=== PATIENT | female | born 1960 | race Caucasian/White ===

== ENCOUNTER 2020-06-22 20:24 | Emergency (ER) | payer MEDICARE, SELFPAY ==
[2020-06-22] VITALS (7 sets, daily range): BP systolic 160–198; BP diastolic 76–104; PULSE 88–101; RESP 15–22; TEMP 37.2; O2SAT 94–99
--- NOTE | ~2020-06-22 | CT_ITS ---
EXAMINATION: CTA chest PE protocol EXAM DATE: 06/22/2020 21:59 INDICATION: chest tightness, shortness of breath, elevated d-dimer. TECHNIQUE: Spiral CTA of the chest (pulmonary arteries) was performed with 100 cc Omnipaque 350 intr avenous contrast injection. Images were acquired during the pulmonary arterial phase. Coronal maxi mum intensity projection 3D-reconstructions were created by the technologist on dedicated workstation . Axial, coronal and sagittal reformatted images were reviewed. The dose-length product (DLP) for t his examination was 932.79 mGy-cm. The exposure was tailored according to patient size (auto mA exp osure control), and iterative reconstruction (ASIR) was used as additional dose reduction technique. Comparison is made to prior examination from 02/21/2015. FINDINGS: Pulmonary arteries are well opacified and without intraluminal filling defects. No thora cic aortic dissection. There is right lower lobe segmental partially confluent consolidation, appear ance most consistent with bacterial pneumonia. No left-sided airspace disease. There are no pleural or pericardial effusions. Tracheobronchial tree is patent. There is no mediastinal, hilar or axil brie lymphadenopathy. There is no pneumothorax. Heart normal in size. There is mild coronary ar terial calcification, arterial sclerosis. Hepatic steatosis. There is thoracic spondylosis without osteoblastic or osteolytic lesions identified. IMPRESSION: 1. Segmental right lower lobe pneumonia. 2. No pulmonary emboli. Reviewed, dictated and finalized at location A.
--- NOTE | ~2020-06-22 | CT_ITS ---
EXAMINATION: CT brain wo con EXAM DATE: 06/22/2020 21:59 INDICATION: Generalized weakness. TECHNIQUE: Spiral CT of the head was performed without contrast. Axial, coronal and sagittal images were reviewed. The dose-length product (DLP) for this examination was 605.33 mGy-cm. The exposure w as tailored according to patient size, and iterative reconstruction (ASIR) was used as additional dos e reduction technique. Comparison is made to prior examination from 07/27/2008. FINDINGS: There is no acute intraparenchymal hemorrhage. No evidence of intraparenchymal brain mass lesion. No evidence of acute infarction. There is no mass effect or midline shift. The ventricles are normal in size. There are no extra-axial collections. There are no acute calvarial fractures. T he orbits are unremarkable. Soft tissue is unremarkable. The visualized sinuses and mastoid air justine ls are well aerated. IMPRESSION: 1. No acute intracranial findings. Reviewed, dictated and finalized at location A.
--- NOTE | ~2020-06-22 | XR_ITS ---
EXAMINATION: XR chest 2V EXAM DATE: 06/22/2020 22:09 INDICATION: Dyspnea, shortness of breath, COPD. TECHNIQUE: Frontal and lateral projections of the chest obtained and reviewed. Comparison is made to prior examination from 09/12/2017. FINDINGS: There is increased density over the right lower lung zone, the segmental mostly groundglass region of acute infectious process better seen on CT. There are no pleural effusions. The cardiome diastinal silhouette is within normal limits. There is no pneumothorax suspected. The bones and sof t tissues are unremarkable. IMPRESSION: Right lower lobe segmental pneumonia. Reviewed, dictated and finalized at location A.
--- NOTE | 2020-06-22 20:29 | ED.URI ---
HPI - URI/Sore Throat General Chief Complaint: Upper Respiratory Infection Stated Complaint: CHEST TIGHTNESS Time Seen by Provider: 06/22/20 20:28 Source: patient Mode of arrival: ambulatory Limitations: no limitations History of Present Illness HPI Narrative: The patient is a 59 yo female who has history of COPD/emphysema, who presents to the ER for evaluation of various complaints including weakness, chest tightness, flank pain. Pt reporting she has been feeling unwell all week, with myalgias, diffuse weakness. Pt denies fever, cough. She does report some shortness of breath and pain with inspiration. She denies fred chest pain. She denies leg swelling or calf pain. Pt denies rhinorea, sore throat, loss of sense or taste or smell. No recent sick contacts. No one sick at home. No known COVID exposures. Pt did try a Neb treatment at home which she thought improved her symptoms. 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 Related Data Allergies Allergy/AdvReac Type Severity Reaction Status Date / Time codeine Allergy Severe Verified 07/18/15 14:44 hydrocodone Allergy Unknown Verified 02/26/16 21:15 NKFA Allergy Unknown Uncoded 02/28/03 14:58 Review of Systems Review of Systems: Narrative: CONSTITUTIONAL: Denies fever, chills, or sweats. EYES: Denies visual changes, redness, or discharge. ENT: Denies rhinorrhea, congestion, sore throat, or otalgia. CARDIOVASCULAR: Reports chest tightness, denies palpitations or edema RESPIRATORY: Denies productive cough, reports feeling mildly short of breath GASTROINTESTINAL: Denies abdominal pain, nausea, vomiting, or diarrhea. GENITOURINARY: Denies dysuria or hematuria. SKIN: Denies rash or itching. MUSCULOSKELETAL: Reports bilateral flank pain and myalgias NEUROLOGIC: Denies headache, numbness, reports diffuse weakness PMFSH Past Medical History Medical History (Updated 06/22/20 @ 22:39 by Uzma Will MD) COPD (chronic obstructive pulmonary disease) Emphysema/COPD Hyperlipidemia Hypertension Type 2 diabetes mellitus Family History Family History (Updated 11/15/10 @ 11:47 by DOCTOR UNKNOWN) Other Cerebrovascular accident Diabetes mellitus Family history of coronary artery disease Hypertension Social History Social History Smoking status: Former smoker Second hand tobacco smoke exposure: No Alcohol intake: never Exam Narrative: Exam Narrative: GENERAL: Awake, alert, conversant HEAD: Normocephalic, atraumatic. EYES: PERRLA and EOMI. ENT: Nares clear, no rhinorrhea or epistaxis. Mucous membranes moist. NECK: Supple. CHEST: No respiratory distress, breathing even and non labored, no wheezing, no reproducible chest wall tenderness HEART: Mildly tachycardic rate, sinus rhythm ABDOMEN:Non distended, non tender EXTREMITIES: Normal range of motion. No edema. SKIN: Warm, dry, no rash. NEURO:No focal deficits. Alert and oriented x3 Course Vital Signs Vital signs: Vital Signs Temperature 37.2 C 06/22/20 20: Pulse Rate 101 H 06/22/20 20: Respiratory Rate 16 06/22/20 20:27 Blood Pressure 198/104 H 06/22/20 20:27 Pulse Oximetry 96 06/22/20 20:27 Temperature 37.2 C 06/22/20 20:27 Pulse Rate 89 06/22/20 21:31 Respiratory Rate 22 H 06/22/20 21:31 Blood Pressure 160/80 H 06/22/20 21:31 Pulse Oximetry 95 06/22/20 21:31 MDM - URI/Sore Throat MDM Narrative Medical decision making narrative: Patient presented for evaluation of general malaise, chest tightness. At the time of assessment, ABCs are intact, vital signs are stable. Lungs are clear, no respiratory distress. Patient has symptoms concerning for possible infectious etiology such as COVID, thus placement based on precautions, tested for COVID. Work-up is consistent with pneumonia. No leukocytosis. Patient is not septic. She has a mild transaminitis which can be seen in setting of illness. She has elevated glucose,
--- NOTE | 2020-06-22 20:55 | ECG_ITS ---
Measurements Intervals [place] Rate: 98 P: 36 SD: 184 QRS: 57 QRSD: 97 T: 23 QT: 363 QTc: 465 Interpretive Statements SINUS RHYTHM BORDERLINE ST-T WAVE ABNORMALITY- DIFFUSE LEADS BASELINE WANDER- I, II, AVR, AVL, AVF, V1-V3 BORDERLINE ECG Electronically Signed On 06-23-2020 7:30:25 CDT by Jose Aguirre D.O.
[2020-06-22] MEDS: SODIUM CHLORIDE 0.9% IV 1,000 ML 999 ML IV CONT (20:58)
[2020-06-22 20:59] LABS: Basophils Percent Auto 0.3 % (0.2-1.2); Eosinophils Percent Auto 0.2 % (0-4.4); Hematocrit 47.2 % (37.0-47.0); Hemoglobin 16.4 g/dL (12.0-15.0); Immature Granulocyte Absolute 0.04 K/mm3 (0.00-0.031); Immature Granulocyte Percent A 0.7 % (0-0.5); Lymphocytes Absolute Auto 2.36 K/mm3 (0.9-3.2); Lymphocytes Percent Auto 39.5 % (18.3-44.2); Mean Corpuscular HGB Conc 34.7 g/dl (32-36); Mean Corpuscular Hemoglobin 29.9 pg (26-34); Monocytes Absolute Auto 0.8 K/mm3 (0.1-0.6); Monocytes Percent Auto 12.7 % (2.6-8.5); Neutrophils Absolute Auto 2.8 K/mm3 (1.3-6.7); Neutrophils Percent Auto 46.6 % (45.5-73.1); Platelet Count Result 118 k/mm3 (150-375); Red Blood Count 5.49 M/mm3 (4.2-5.4); Red Cell Distribution Width 13.6 % (11.5-14.5)
[2020-06-22] MEDS: ALBUTEROL SULFATE (*SP) AEROSOL 1 PUFF 2 PUFF INHALATION (20:59)
[2020-06-22] MEDS: methylPREDNISolone SOD SUCC 125 MG VIAL IV PUSH (21:00)
--- NOTE | 2020-06-22 21:01 | PCRCNOTE ---
pt refused abg dr hagen aware
[2020-06-22] MEDS: ONDANSETRON INJ 4 MG/2 ML VIAL IV PUSH (21:04)
[2020-06-22 21:09] LABS: INR 1.1; Prothrombin Time 13.5 Seconds (11.1-14.7)
[2020-06-22 21:10] LABS: Partial Thromboplastin Time 27.2 SECONDS (22.3-36.8)
[2020-06-22 21:12] LABS: D Dimer 3.17 ug/mL (<0.48)
[2020-06-22 21:32] LABS: Lipase 70 U/L (23-300)
[2020-06-22 21:36] LABS: Alanine Aminotransferase 97 U/L (4-35); Albumin Level 4.1 g/dL (3.5-5.1); Alkaline Phosphatase 69 U/L (38-126); Anion Gap 11 mmol/L (8-16); Aspartate Amino Transferase 65 U/L (14-36); Bilirubin,Total 0.7 mg/dL (0.2-1.3); Blood Urea Nitrogen 9 mg/dL (7-17); CRP 1.1 mg/dL (<1.0); Calcium 8.8 mg/dL (8.4-10.2); Carbon Dioxide 24 mmol/L (22-30); Chloride 98 mmol/L (98-107); Estimated Glomerular Filt Rate > 60; Glucose 309 mg/dL (65-105); Potassium 3.7 mmol/L (3.4-5.0); Sodium 133 mmol/L (137-145)
[2020-06-22 21:42] LABS: NT Pro B Type Natriuretic Pept 23 PG/ML (5-100)
[2020-06-22 21:44] LABS: Troponin I < 0.012 ng/mL (0.000-0.034)
--- NOTE | 2020-06-22 21:51 | PC.NURSE ---
Pt. to ct.
--- NOTE | 2020-06-22 22:02 | PC.NURSE ---
Pt in CT. Unable to obtain a urine sample.
[2020-06-22 22:40] LABS: Add Urine Microscopic? YES; Appearance Urine Clear (Clear); Bacteria Urine Trace /hpf; Bilirubin Urine Negative (Negative); Blood Urine Negative (Negative); Color Urine Straw (Yellow); Glucose Urine UA 3+ mg/dL (Negative); Ketones Urine 1+ mg/dL (Negative); Leukocyte Esterase Ur Negative LEU/UL (Negative); Mucus Urine Rare /lpf; Nitrate Urine Negative (Negative); Protein Urine Negative (Negative); Squamous Epithelial Cell Urine Few /hpf (Few); Urobilinogen Urine Negative mg/dL (<2.0); WBC Urine 0-3 /hpf
[2020-06-22 22:43] LABS: Specific Grav Ur > 1.060 (1.001-1.035)
[2020-06-22] MEDS: DOXYCYCLINE HYCLATE 100 MG TABLET PO (22:59)
[2020-06-23 13:17] LABS: SARS-CoV-2 RNA PCR Positive
== END 2020-06-22 22:55 | disposition home or self-care (01) ==
PROVIDERS: Emergency Provider Emergency Medicine
DX: U07.1 COVID-19 (principal); J12.89 Other viral pneumonia; J43.9 Emphysema, unspecified; Z87.891 Personal history of nicotine dependence; E78.5 Hyperlipidemia, unspecified; I10 Essential (primary) hypertension; E11.9 Type 2 diabetes mellitus without complications; R94.31 Abnormal electrocardiogram [ECG] [EKG]; R06.02 Shortness of breath
CPT/HCPCS: 36415; 70450; 71046; 71275; 80053; 81001; 83690; 83880; 84484; 85025; 85380; 85610; 85730; 86140; 87635; 93005; 96361; 96374; 96375; 99284; A9270; C9803; J0131; J2405; J2930; J7030; Q9967; U0003

== ENCOUNTER 2021-01-18 08:16 | Outpatient (CLI) | payer MEDICARE, SELFPAY ==
[2021-01-18 08:38] LABS: Basophils Absolute Auto 0.1 K/mm3 (0.0-0.1); Basophils Percent Auto 0.6 % (0.2-1.2); Eosinophils Absolute Auto 0.3 K/mm3 (0-0.3); Eosinophils Percent Auto 3.5 % (0-4.4); Hemoglobin 16.5 g/dL (12.0-15.0); Immature Granulocyte Absolute 0.05 K/mm3 (0.00-0.031); Immature Granulocyte Percent A 0.6 % (0-0.5); Lymphocytes Absolute Auto 3.47 K/mm3 (0.9-3.2); Lymphocytes Percent Auto 45.1 % (18.3-44.2); Mean Corpuscular HGB Conc 34.4 g/dl (32-36); Mean Corpuscular Hemoglobin 29.9 pg (26-34); Mean Corpuscular Volume 87.1 fl (80-100); Mean Platelet Volume 12.3 fl (7.4-10.4); Monocytes Absolute Auto 0.7 K/mm3 (0.1-0.6); Monocytes Percent Auto 8.7 % (2.6-8.5); Neutrophils Absolute Auto 3.2 K/mm3 (1.3-6.7); Neutrophils Percent Auto 41.5 % (45.5-73.1); Platelet Count Result 140 k/mm3 (150-375); Red Blood Count 5.51 M/mm3 (4.2-5.4); Red Cell Distribution Width 13.3 % (11.5-14.5); White Blood Count 7.7 K/mm3 (4.5-10.0)
[2021-01-18 08:53] LABS: Hemoglobin A1C 11.3 % (<5.7)
[2021-01-18 08:59] LABS: Alanine Aminotransferase 51 U/L (4-35); Albumin Level 4.3 g/dL (3.5-5.1); Alkaline Phosphatase 68 U/L (38-126); Anion Gap 10 mmol/L (8-16); Aspartate Amino Transferase 36 U/L (14-36); Bilirubin,Total 0.6 mg/dL (0.2-1.3); Blood Urea Nitrogen 12 mg/dL (7-17); Calcium 9.2 mg/dL (8.4-10.2); Carbon Dioxide 23 mmol/L (22-30); Chloride 102 mmol/L (98-107); Cholesterol 262 mg/dL (0-200); Estimated Glomerular Filt Rate > 60; Glucose 336 mg/dL (65-105); Magnesium 1.6 mg/dL (1.6-2.3); Potassium 4.3 mmol/L (3.4-5.0); Sodium 135 mmol/L (137-145)
[2021-01-18 09:04] LABS: LDL Cholesterol Direct 56 mg/dL
[2021-01-18 09:17] LABS: Triglycerides 1428 mg/dL (<150)
[2021-01-18 09:35] LABS: Vitamin D 25 Hydroxy 16.9 ng/mL
== END 2021-01-18 08:17 | disposition home or self-care (01) ==
PROVIDERS: PCP Family Medicine; Visit Provider Nurse Practitioner Family
DX: J44.9 Chronic obstructive pulmonary disease, unspecified (principal); E78.5 Hyperlipidemia, unspecified; E11.65 Type 2 diabetes mellitus with hyperglycemia; Z13.29 Encounter for screening for other suspected endocrine disorder; E55.9 Vitamin D deficiency, unspecified
CPT/HCPCS: 36415; 80053; 80061; 82306; 82607; 83036; 83735; 84443; 85025

== ENCOUNTER 2021-05-03 15:18 | Outpatient (CLI) | payer MEDICARE, SELFPAY ==
--- NOTE | ~2021-05-03 | CT_ITS ---
EXAMINATION: CT abdomen wo con DATE: 05/03/2021 15:58 INDICATION: Unspecified abdominal pain. TECHNIQUE: Computed tomography (CT) of the abdomen was performed without intravenous contrast. Automa jeevan exposure control and iterative reconstruction technique were employed. The dose-length product wa s 929.68 mGy-cm. COMPARISON: CT abdomen and pelvis 06/30/2011 FINDINGS: The visualized portions of the lung bases demonstrate mild atelectasis. No pleural effusion . The heart size is normal. No pericardial effusion. There is diffuse hepatic steatosis. There are ch anges of cholecystectomy. The spleen, pancreas, adrenal glands, and kidneys are normal. There are no dilated loops of bowel. There are no pathologically enlarged lymph nodes. There is no free intraperit francis fluid. There is moderate lumbar spondylosis. IMPRESSION: 1. Diffuse hepatic steatosis. Reviewed, dictated and finalized at location A.
== END 2021-05-03 15:19 | disposition home or self-care (01) ==
PROVIDERS: PCP Family Medicine; Visit Provider Nurse Practitioner Family
DX: R10.9 Unspecified abdominal pain (principal); K76.0 Fatty (change of) liver, not elsewhere classified
CPT/HCPCS: 74150

== ENCOUNTER 2021-05-04 08:02 | Outpatient (CLI) | payer MEDICARE, SELFPAY ==
[2021-05-04 08:41] LABS: Basophils Absolute Auto 0.1 K/mm3 (0.0-0.1); Basophils Percent Auto 0.8 % (0.2-1.2); Eosinophils Absolute Auto 0.3 K/mm3 (0-0.3); Eosinophils Percent Auto 3.8 % (0-4.4); Hematocrit 47.7 % (37.0-47.0); Hemoglobin 16.3 g/dL (12.0-15.0); Immature Granulocyte Absolute 0.06 K/mm3 (0.00-0.031); Immature Granulocyte Percent A 0.7 % (0-0.5); Lymphocytes Absolute Auto 3.61 K/mm3 (0.9-3.2); Lymphocytes Percent Auto 43.1 % (18.3-44.2); Mean Corpuscular HGB Conc 34.2 g/dl (32-36); Mean Corpuscular Hemoglobin 29.4 pg (26-34); Mean Corpuscular Volume 85.9 fl (80-100); Monocytes Absolute Auto 0.7 K/mm3 (0.1-0.6); Monocytes Percent Auto 8.8 % (2.6-8.5); Neutrophils Absolute Auto 3.6 K/mm3 (1.3-6.7); Neutrophils Percent Auto 42.8 % (45.5-73.1); Platelet Count Result 165 k/mm3 (150-375); Red Blood Count 5.55 M/mm3 (4.2-5.4); Red Cell Distribution Width 14.2 % (11.5-14.5); White Blood Count 8.4 K/mm3 (4.5-10.0)
[2021-05-04 08:52] LABS: Alanine Aminotransferase 56 U/L (4-35); Albumin Level 4.2 g/dL (3.5-5.1); Alkaline Phosphatase 64 U/L (38-126); Amylase 68 U/L (30-110); Anion Gap 13 mmol/L (8-16); Aspartate Amino Transferase 36 U/L (14-36); Bilirubin,Total 0.7 mg/dL (0.2-1.3); Blood Urea Nitrogen 14 mg/dL (7-17); Calcium 9.3 mg/dL (8.4-10.2); Carbon Dioxide 20 mmol/L (22-30); Chloride 98 mmol/L (98-107); Estimated Glomerular Filt Rate > 60; Glucose 374 mg/dL (65-110); Lipase 105 U/L (23-300); Potassium 4.2 mmol/L (3.4-5.0); Sodium 131 mmol/L (137-145)
== END 2021-05-04 08:03 | disposition home or self-care (01) ==
PROVIDERS: PCP Family Medicine; Visit Provider Nurse Practitioner Family
DX: R10.812 Left upper quadrant abdominal tenderness (principal); R10.9 Unspecified abdominal pain
CPT/HCPCS: 36415; 80053; 82150; 83690; 85025

== ENCOUNTER 2021-09-08 12:03 | Emergency (ER) | payer MEDICARE, SELFPAY ==
--- NOTE | ~2021-09-08 | CT_ITS ---
EXAMINATION: Moderate cervical spondylosis. EXAM DATE: 09/08/2021 13:16 INDICATION: Fall, head, facial injury. TECHNIQUE: Spiral CT of the facial bones was acquired in the axial plane. Coronal reformatted images were also reviewed. Spiral CT of the cervical spine was performed without contrast. Axial images we re reviewed. Coronal and sagittal reformatted images were also reviewed. The dose-length product (DL P) for this examination was 555.73 mGy-cm. The exposure was tailored according to patient size, and iterative reconstruction (ASIR) was used as additional dose reduction technique. There is no prior s tudy for comparison. FINDINGS: FACIAL CT: Bilateral nasal bone fractures which are mildly depressed. Probable acute nasal septal fr acture. There is blood within the ethmoid, sphenoid sinuses. The orbits, globes and extraocular musc les are unremarkable. Some blood products within the ethmoid and sphenoid sinuses. CERVICAL CT: There is no evidence of acute cervical fracture. The odontoid process is intact. Pre-d ens space is normal. Prevertebral soft tissue is normal. There are no soft tissue abnormalities marly ntified. There is no disc space widening or traumatic vertebral body subluxation suspected. Vertebr al body and disc heights are well-maintained. A detailed level by level evaluation of spondylosis c an be added as addendum if requested. IMPRESSION: 1. Mildly depressed nasal bone fractures. 2. Nondisplaced nasal septal fracture. 3. Some sinus blood. 4. No cervical fracture. Reviewed, dictated and finalized at location A. TEGY INTERN
--- NOTE | ~2021-09-08 | CT_ITS ---
EXAMINATION: CT brain wo [facility] EXAM DATE: 09/08/2021 13:16 INDICATION: Fall. TECHNIQUE: Spiral CT of the head was performed without contrast. Axial, coronal and sagittal images were reviewed. The dose-length product (DLP) for this examination was 681.00 mGy-cm. The exposure w as tailored according to patient size, and iterative reconstruction (ASIR) was used as additional dos e reduction technique. Comparison is made to prior examination from 06/22/2020. FINDINGS: There is no acute intraparenchymal hemorrhage. No evidence of intraparenchymal brain mass lesion. No evidence of acute infarction. There is no mass effect or midline shift. The ventricles are normal in size. There are no extra-axial collections. There are no acute calvarial fractures. T he orbits are unremarkable. Soft tissue is unremarkable. Nasal bone fractures. Ethmoid, nasal cavi ty blood IMPRESSION: 1. No acute intracranial findings. 2. Nasal bone fractures. Reviewed, dictated and finalized at location A. DRAFTER
--- NOTE | ~2021-09-08 | XR_ITS ---
EXAMINATION: XR shoulder RT min 2V EXAM DATE: 09/08/2021 12:08 INDICATION: fall, deformity . TECHNIQUE: Frontal, Y projections of the right shoulder. There is no prior study for comparison. FINDINGS: Acute closed posttraumatic nondisplaced fractures of the right humeral neck and probably g reater tuberosity. No dislocation. IMPRESSION: Right humeral neck/greater tuberosity nondisplaced fractures. Reviewed, dictated and finalized at location A. OTICS TECHNICIAN
[2021-09-08 11:53] VITALS: BP 180/104; PULSE 78; RESP 16; TEMP 36.6; O2SAT 95
--- NOTE | 2021-09-08 12:18 | ED.GENADULT ---
HPI - General Adult General Chief complaint: Fall Stated complaint: fall - deformed arm Time Seen by Provider: 09/08/21 12:09 Source: patient History of Present Illness HPI narrative: Patient is a 61 y/o female complaining of right shoulder pain follow a fall earlier today. She states that she tripped while walking into the house from garage. She states that she fell forward and hit her face. She describes her shoulder pain as dull and rates it as 9/10. Pain is worse with movement. She also struck her face and has nose laceration. She has no headache, neck pain, back pain chest pain for abdominal pain. Related Data Allergies Allergy/AdvReac Type Severity Reaction Status Date / Time hydrocodone Allergy Unknown Nausea and Verified 07/05/21 13:44 Vomiting codeine AdvReac Severe Nausea and Verified 07/05/21 13:44 Vomiting Review of Systems Constitutional: Constitutional: Denies chills, Denies fever(s), Denies headache(s) and Denies weakness Eyes: Eyes: Denies blurry vision ENT: Denies headache(s) and Denies neck pain Cardiovascular: Cardiovascular: Denies chest pain and Denies dyspnea Respiratory: Respiratory: Denies cough and Denies dyspnea Gastrointestinal: Gastrointestinal: Denies abdominal pain, Denies diarrhea, Denies nausea and Denies vomiting Genitourinary: Genitourinary: Denies hematuria and Denies dysuria Musculoskeletal: Musculoskeletal: Denies back pain, Denies neck pain and Reports other (right shoulder pain) Neurologic: Denies headache(s) and Denies weakness PMFSH Past Medical History Medical History Acute bronchitis due to other specified organisms Acute sinusitis, unspecified BMI 36.0-36.9,adult BMI 37.0-37.9, adult COPD (chronic obstructive pulmonary disease) COVID-19 Depression Dietary counseling and surveillance (09/30/16) Elevated liver function tests Emphysema/COPD Essential (primary) hypertension Fatty liver Fatty liver Flu vaccine need Hyperlipidemia Hypertension [place] (obstructive sleep apnea) Other abnormal glucose Other hyperlipidemia Sebaceous cyst Shortness of breath Type 2 diabetes mellitus Type 2 diabetes mellitus without complication Uncontrolled type 2 diabetes mellitus with complication, without long-term current use of insulin Vaginal candidiasis Family History Family History Father Heart disease Mother Heart disease Sibling Heart disease Acute myocardial infarction Sibling Heart disease Hypertension Diabetes mellitus Vitamin D deficiency Cancer Other Cerebrovascular accident Family history of coronary artery disease Social History Social History Tobacco type: cigarettes Second hand tobacco smoke exposure: Yes Alcohol intake: current Substance use: never Substance use type: does not use Additional occupation/education comments: disabled Gender identity (if verbalized by the patient): Female Sexual Orientation (if Verbalized by the Patient): Straight or Heterosexual Exam Const: General: no acute distress and well developed Orientation/consciousness: oriented to person, oriented to place, oriented to time and patient oriented x3 HENMT: Head: normocephalic Ears: external ears normal General nose exam: Normal external nose present Eyes: General: appearance normal, both eyes and all related structures Conjunctivae: conjunctivae normal Neck: Neck: normal visual inspection and full ROM Chest: Chest palpation & inspection: normal inspection of the chest and no tenderness Resp: Effort & Inspection: normal respiratory effort Auscultation: clear to auscultation bilaterally Cardio: Rate: regular rate Rhythm: regular rhythm GI: GI Palp: No abdominal tenderness and Yes Soft to palpation Skin: General skin exam: normal color an
[2021-09-08] MEDS: traMADol HCL (*CRX) 50 MG TABLET PO (12:34)
[2021-09-08] MEDS: TETANUS,DIPHTHERIA,AC PERTUSSIS ADULT (0.5 ML) BOOSTRIX IM (12:34)
[2021-09-08 14:40] VITALS: BP 170/80; PULSE 89; RESP 14; O2SAT 97
== END 2021-09-08 14:40 | disposition home or self-care (01) ==
PROVIDERS: Emergency Provider Emergency Medicine; PCP Family Medicine
DX: S42.254A Nondisplaced fracture of greater tuberosity of right humerus, initial encounter for closed fracture (principal); S42.214A Unspecified nondisplaced fracture of surgical neck of right humerus, initial encounter for closed fracture; S02.2XXA Fracture of nasal bones, initial encounter for closed fracture; S01.21XA Laceration without foreign body of nose, initial encounter; Z23 Encounter for immunization; J43.9 Emphysema, unspecified; I10 Essential (primary) hypertension; E78.5 Hyperlipidemia, unspecified; G47.33 Obstructive sleep apnea (adult) (pediatric); E11.9 Type 2 diabetes mellitus without complications; Z86.16 Personal history of COVID-19; F32.A Depression, unspecified; F17.210 Nicotine dependence, cigarettes, uncomplicated; Z79.84 Long term (current) use of oral hypoglycemic drugs; Z79.899 Other long term (current) drug therapy; W01.0XXA Fall on same level from slipping, tripping and stumbling without subsequent striking against object, initial encounter
CPT/HCPCS: 12011; 70450; 70486; 72125; 73030; 90471; 90715; 99284; A9270

== ENCOUNTER 2021-09-11 14:45 | Outpatient (CLI) | payer MEDICARE, SELFPAY ==
--- NOTE | ~2021-09-11 | CT_ITS ---
EXAMINATION: CT shoulder RT wo con DATE: 09/11/2021 15:26 INDICATION: Closed fracture of proximal right humerus. TECHNIQUE: Computed tomography (CT) of the right shoulder was performed without intravenous contrast. Automated exposure control and iterative reconstruction technique were employed. The dose-length pro duct was 531.94 mGy-cm. COMPARISON: Right humerus radiographs 09/08/2021 FINDINGS: Bone alignment is normal. There is a comminuted fracture proximal right humerus including f racture components of the greater tuberosity without to 7 mm displacement. There is a fracture compon ent at the surgical neck. The main distal fracture fragment demonstrates 3 mm medial displacement, 8 mm impaction laterally, and 9 degrees lateral angulation. There is mild osteoarthritis of acromioclav icular joint and glenohumeral joint. IMPRESSION: 1. Comminuted one-part fracture of proximal right humerus. Reviewed, dictated and finalized at location A. NG MIXER
== END 2021-09-11 14:46 | disposition home or self-care (01) ==
PROVIDERS: PCP Family Medicine; Visit Provider Orthopaedic Surgery
DX: S42.201D Unspecified fracture of upper end of right humerus, subsequent encounter for fracture with routine healing (principal); X58.XXXD Exposure to other specified factors, subsequent encounter
CPT/HCPCS: 73200

== ENCOUNTER 2022-03-19 09:05 | Outpatient (CLI) | payer MEDICARE, SELFPAY ==
--- NOTE | ~2022-03-19 | MR_ITS ---
EXAMINATION: MR brain/brain stem wo con DATE: 03/19/2022 10:28 INDICATION: Headache. TECHNIQUE: Magnetic resonance imaging (MRI) of the brain and brainstem was performed without intraven ous contrast. COMPARISON: Brain MRI 11/07/2009, head CT 09/08/2021 FINDINGS: There is a small focus of increased T2-weighted signal intensity in the right frontal lobe deep white matter, which is normal as an isolated finding. There is no intracranial hemorrhage, acute infarction, or abnormal intracranial mass lesion. The ventricles are normal in size. The paranasal s inuses are clear. The orbits are normal. The mastoid air cells are normal. IMPRESSION: 1. Normal brain. Reviewed, dictated and finalized at location A. IMPRESSION: 1. Normal brain.
== END 2022-03-19 09:06 | disposition home or self-care (01) ==
PROVIDERS: PCP Family Medicine; Visit Provider Nurse Practitioner Family
DX: R51.9 Headache, unspecified (principal); Z86.73 Personal history of transient ischemic attack (TIA), and cerebral infarction without residual deficits; R26.89 Other abnormalities of gait and mobility; I10 Essential (primary) hypertension; H93.19 Tinnitus, unspecified ear
CPT/HCPCS: 70551

== ENCOUNTER 2022-05-22 13:31 | Outpatient (CLI) | payer MEDICARE, SELFPAY ==
[2022-05-22 13:56] LABS: Basophils Absolute Auto 0.1 K/mm3 (0.0-0.1); Eosinophils Absolute Auto 0.3 K/mm3 (0-0.3); Eosinophils Percent Auto 3.8 % (0-4.4); Hematocrit 48.1 % (37.0-47.0); Hemoglobin 16.6 g/dL (12.0-15.0); Immature Granulocyte Absolute 0.05 K/mm3 (0.00-0.031); Immature Granulocyte Percent A 0.6 % (0-0.5); Lymphocytes Absolute Auto 4.07 K/mm3 (0.9-3.2); Lymphocytes Percent Auto 48.5 % (18.3-44.2); Mean Corpuscular HGB Conc 34.5 g/dl (32-36); Mean Corpuscular Hemoglobin 30.2 pg (26-34); Mean Corpuscular Volume 87.6 fl (80-100); Mean Platelet Volume 11.8 fl (7.4-10.4); Monocytes Absolute Auto 0.6 K/mm3 (0.1-0.6); Monocytes Percent Auto 7.6 % (2.6-8.5); Neutrophils Absolute Auto 3.2 K/mm3 (1.3-6.7); Neutrophils Percent Auto 38.5 % (45.5-73.1); Platelet Count Result 154 k/mm3 (150-375); Red Blood Count 5.49 M/mm3 (4.2-5.4); Red Cell Distribution Width 13.5 % (11.5-14.5); White Blood Count 8.4 K/mm3 (4.5-10.0)
[2022-05-22 14:08] LABS: Alanine Aminotransferase 54 U/L (6-35); Albumin Level 4.6 g/dL (3.5-5.1); Alkaline Phosphatase 69 U/L (38-126); Anion Gap 18 mmol/L (8-16); Aspartate Amino Transferase 48 U/L (14-36); Bilirubin,Total 0.7 mg/dL (0.2-1.3); Blood Urea Nitrogen 11 mg/dL (7-17); Calcium 8.8 mg/dL (8.4-10.2); Carbon Dioxide 20 mmol/L (22-30); Chloride 96 mmol/L (98-107); Estimated Glomerular Filt Rate > 60; Glucose 378 mg/dL (65-110); Magnesium 1.7 mg/dL (1.6-2.3); Potassium 4.2 mmol/L (3.4-5.0); Sodium 134 mmol/L (137-145)
[2022-05-22 14:39] LABS: Vitamin D 25 Hydroxy 22.8 ng/mL
== END 2022-05-22 13:32 | disposition home or self-care (01) ==
PROVIDERS: PCP Family Medicine; Visit Provider Nurse Practitioner Family
DX: R19.7 Diarrhea, unspecified (principal); E55.9 Vitamin D deficiency, unspecified
CPT/HCPCS: 36415; 80053; 82306; 83735; 84443; 85025

== ENCOUNTER 2023-02-05 14:01 | Outpatient (CLI) | payer MEDICARE, SELFPAY ==
--- NOTE | ~2023-02-05 | MR_ITS ---
EXAMINATION: MR brain/brain stem wo con DATE: 02/05/2023 14:46 INDICATION: Unspecified visual disturbance. Headache. Memory loss. TECHNIQUE: Magnetic resonance imaging (MRI) of the brain and brainstem was performed without intraven ous contrast. COMPARISON: Brain MRI 03/19/2022, head CT 09/08/2021 FINDINGS: There are 2 punctate old microhemorrhage is in the cerebrum. There are scattered areas of n onspecific increased T2-weighted signal intensity in the cerebral white matter, which is within bakari l limits for the patient's age. The pituitary demonstrates a height of 11 mm with convex superior mar gin. There is a 7 mm mass in the left side of the pituitary with increased T2-weighted signal intensi ty. There is no acute ischemic infarct. The ventricles are normal in size. The paranasal sinuses are clear. The mastoid air cells are normal. IMPRESSION: 1. 7 mm pituitary mass, which may be a cyst or neoplasm. Brain MRI without and with contrast by the p ituitary protocol is recommended. Reviewed, dictated and finalized at location A. IMPRESSION: 1. 7 mm pituitary mass, which may be a cyst or neoplasm. Brain MRI without and with contrast by the pituitary protocol is recommended.
== END 2023-02-05 14:02 | disposition home or self-care (01) ==
LOC: ANHIMG 14:04
PROVIDERS: PCP Family Medicine; Visit Provider Nurse Practitioner Family
DX: H53.9 Unspecified visual disturbance (principal); R26.89 Other abnormalities of gait and mobility; R51.9 Headache, unspecified; Z86.73 Personal history of transient ischemic attack (TIA), and cerebral infarction without residual deficits
CPT/HCPCS: 70551

== ENCOUNTER 2023-02-07 20:57 | Inpatient (IN) | payer MEDICARE, SELFPAY ==
--- NOTE | ~2023-02-07 | CT_ITS ---
EXAMINATION: CT abdomen pelvis wo con DATE: 02/08/2023 00:32 INDICATION: Abdominal pain, nausea and vomiting TECHNIQUE: Computed tomography (CT) of the abdomen and pelvis was performed without intravenous contr ast. Automated exposure control and iterative reconstruction technique were employed. Exam dose: 150 2.29 mGy-cm total exam DLP. COMPARISON: 05/03/2021 CT abdomen FINDINGS: Chronic bilateral lower lobe focal fibrotic change, right greater than left. Cardiomegaly. No pericardial or pleural effusion. Status post cholecystectomy. There is diffuse hepatic steatosis. No hepatic space-occupying mass lesi on is detected. Status post cholecystectomy. No hepatic, splenic, pancreatic, and adrenal or renal sp donte-occupying mass lesion is detected. No bile duct or pancreatic duct dilatation. No urinary tract c alculus or hydroureteronephrosis. There is atherosclerotic calcification but normal caliber of the abdominal aorta and iliac arteries. There is atherosclerotic calcification at the origins of the renal arteries. No intraperitoneal or re troperitoneal or pelvic mass lesion or adenopathy or ascites is detected. Status post hysterectomy. No bowel obstruction or intraperitoneal free air. No suspicious osteolytic or osteoblastic lesions are noted. IMPRESSION: Hepatic steatosis Status post cholecystectomy. Status post hysterectomy Reviewed, dictated and finalized at Location A. Reviewed, dictated and finalized at location A.
--- NOTE | ~2023-02-07 | XR_ITS ---
EXAMINATION: XR abdomen/kub 1V INDICATION: Abdominal distention and nausea TECHNIQUE: Supine views of the abdomen were obtained on 2 radiographs. COMPARISON: CT, 02/08/2023 FINDINGS: The bowel gas pattern is nonspecific. No dilated loops of bowel are evident. There is moder ate to severe osteoarthritis of the hips. IMPRESSION: 1. No radiographic correlate for the patient's symptoms. Reviewed, dictated and finalized at location F.
[2023-02-07 21:19] VITALS: BP 150/99; PULSE 94; RESP 16; TEMP 36.6; O2SAT 98
[2023-02-07 21:33] LABS: Basophils Percent Auto 0.4 % (0.2-1.2); Eosinophils Absolute Auto 0.2 K/mm3 (0-0.3); Eosinophils Percent Auto 1.6 % (0-4.4); Hematocrit 50.1 % (37.0-47.0); Hemoglobin 17.1 g/dL (12.0-15.0); Immature Granulocyte Absolute 0.05 K/mm3 (0.00-0.031); Immature Granulocyte Percent A 0.5 % (0-0.5); Lymphocytes Absolute Auto 3.29 K/mm3 (0.9-3.2); Lymphocytes Percent Auto 30.8 % (18.3-44.2); Mean Corpuscular HGB Conc 34.1 g/dl (32-36); Mean Corpuscular Hemoglobin 29.6 pg (26-34); Mean Corpuscular Volume 86.8 fl (80-100); Mean Platelet Volume 11.6 fl (7.4-10.4); Monocytes Absolute Auto 0.8 K/mm3 (0.1-0.6); Monocytes Percent Auto 7.6 % (2.6-8.5); Neutrophils Absolute Auto 6.3 K/mm3 (1.3-6.7); Neutrophils Percent Auto 59.1 % (45.5-73.1); Platelet Count Result 193 k/mm3 (150-375); Red Blood Count 5.77 M/mm3 (4.2-5.4); Red Cell Distribution Width 13.1 % (11.5-14.5); White Blood Count 10.7 K/mm3 (4.5-10.0)
[2023-02-07 21:44] LABS: Alanine Aminotransferase 76 U/L (6-35); Albumin Level 4.8 g/dL (3.5-5.1); Alkaline Phosphatase 69 U/L (38-126); Anion Gap 13 mmol/L (8-16); Aspartate Amino Transferase 58 U/L (14-36); Blood Urea Nitrogen 8 mg/dL (7-17); Calcium 9.1 mg/dL (8.4-10.2); Carbon Dioxide 24 mmol/L (22-30); Chloride 100 mmol/L (98-107); Estimated CRCL calculation 121 ml/min; Estimated Glomerular Filt Rate > 60; Glucose 226 mg/dL (65-110); Lipase 257 U/L (23-300); Potassium 3.7 mmol/L (3.4-5.0); Sodium 137 mmol/L (137-145)
[2023-02-07 22:18] LABS: Appearance Urine Cloudy (Clear); Bacteria Urine 4+ /hpf; Bilirubin Urine Negative (Negative); Blood Urine Negative (Negative); Budding Yeast Urine Present /hpf; Color Urine Yellow (Yellow); Glucose Urine UA 2+ mg/dL (Negative); Ketones Urine Trace mg/dL (Negative); Leukocyte Esterase Ur Negative LEU/UL (Negative); Nitrate Urine Negative (Negative); Protein Urine 1+ mg/dL (Negative); Specific Grav Ur 1.018 (1.001-1.035); Squamous Epithelial Cell Urine Moderate /hpf (Few); Urobilinogen Urine 0.2 mg/dL (<2.0); pH Urine 5.5 (5.0-9.0)
[2023-02-07 22:19] LABS: Add Urine Microscopic? YES
[2023-02-07 23:30] VITALS: PULSE 89; PULSE 90; RESP 19; RESP 21; O2SAT 98
[2023-02-07 23:34] VITALS: BP 232/107; PULSE 90; RESP 19; O2SAT 98
[2023-02-07 23:35] VITALS: BP 232/107
--- NOTE | 2023-02-07 23:35 | PC.NURSE ---
Pt BP was 232/107. This RN asked pt if she has HTN. Pt states she takes BP medications but she has not taken them the last couple days due to not being able to keep anything down.
[2023-02-07 23:46] VITALS: PULSE 99; RESP 22
[2023-02-08] VITALS (21 sets, daily range): BP systolic 151–177; BP diastolic 83–91; PULSE 82–115; RESP 16–27; TEMP 36–36.7; O2SAT 95–100; BMI 35.7
[2023-02-08] MEDS: SODIUM CHLORIDE 0.9% IV 1,000 ML 999 ML IV CONT
[2023-02-08] MEDS: ONDANSETRON INJ 4 MG/2 ML VIAL IV PUSH ×5 (00:02→20:17)
[2023-02-08] MEDS: MORPHINE SULFATE (*CRX) 4 MG/ML INJ IV PUSH ×6 (00:02→20:17)
--- NOTE | 2023-02-08 03:27 | PM.IMHP ---
H&P: HPI History of Present Illness Date/Time: 02/08/23 03:27 Chief Complaint: Abdominal pain Narrative: This is a 62-year-old female with past medical history significant for hypertension, COPD/emphysema, type 2 diabetes mellitus, peripheral diabetic neuropathy, GERD, obstructive sleep apnea on CPAP at nighttime, chronic diarrhea. Patient presents to the emergency room due to worsening chronic diarrhea, abdominal distention, bloating, nausea, vomiting, for the last 5 days or so. Patient has not been able to keep anything down, denies any fevers, rigors, chills, night sweats. Preliminary workup was significant for CT of abdomen and pelvis reported as: EXAMINATION: CT abdomen pelvis wo con DATE: 02/08/2023 00:32 INDICATION: Abdominal pain, nausea and vomiting TECHNIQUE: Computed tomography (CT) of the abdomen and pelvis was performed without intravenous contrast. Automated exposure control and iterative reconstruction technique were employed. Exam dose:? 1502.29 mGy-cm total exam DLP.? COMPARISON: 05/03/2021 CT abdomen FINDINGS: Chronic bilateral lower lobe focal fibrotic change, right greater than left. Cardiomegaly. No pericardial or pleural effusion. Status post cholecystectomy. There is diffuse hepatic steatosis. No hepatic space-occupying mass lesion is detected. Status post cholecystectomy. No hepatic, splenic, pancreatic, and adrenal or renal space-occupying mass lesion is detected. No bile duct or pancreatic duct dilatation. No urinary tract calculus or hydroureteronephrosis. There is atherosclerotic calcification but normal caliber of the abdominal aorta and iliac arteries. There is atherosclerotic calcification at the origins of the renal arteries. No intraperitoneal or retroperitoneal or pelvic mass lesion or adenopathy or ascites is detected. Status post hysterectomy. No bowel obstruction or intraperitoneal free air. No suspicious osteolytic or osteoblastic lesions are noted. IMPRESSION:? Hepatic steatosis Status post cholecystectomy. Status post hysterectomy Review of Systems Review of Systems: Worsening chronic diarrhea, nausea, vomiting, generalized weakness Constitutional: Constitutional: Denies chills, Reports fatigue, Denies fever(s), Denies frequent falls, Reports lethargy, Reports malaise, Denies night sweats, Reports poor appetite and Reports weakness Eyes: Eyes: Denies change in vision ENT: Denies dysphagia and Denies odynophagia Cardiovascular: Cardiovascular: Denies chest pain, Denies leg edema, Denies radiating jaw, neck or arm pain and Denies palpitations Respiratory: Respiratory: Denies chest congestion and Denies excessive phlegm production Gastrointestinal: Gastrointestinal: Reports abdominal pain, Reports GI cramping, Denies dyspepsia, Denies heartburn, Reports diarrhea, Reports nausea and Reports vomiting Genitourinary: Genitourinary: Denies dysuria and Denies flank pain Musculoskeletal: Musculoskeletal: Reports back pain and Denies myalgias Integumentary/Breasts: Skin/Breast: Denies rash Neurologic: Denies focal weakness, Denies Sensory deficit (Neuro) and Reports paresthesias Psychiatric: Psychiatric: Reports no additional psychiatric complaints and Reports as per HPI Endocrine: Endocrine: Denies cold intolerance, Denies flushing, Denies heat intolerance, Denies polyphagia, Denies polydipsia and Denies palpitations Hematologic/Lymphatic: Hematologic/Lymphatic: Reports no additional hematologic/lymphatic complaints and Reports as per HPI Allergic/Immunologic: Allergic/Immunologic: Reports no additional allergic/immunologic complaints and Reports as per HPI PMFSH Past Medical History Medical History (Updated 02/08/23 @ 20:21 by Collins Montaño MD) Acute bronchitis due to other specified organisms Acute sinusitis, unspecified BMI 35.0-35.9,adult BMI 36.0-36.9,adult BMI 37.0-37.9, adult COPD (chronic obstructive pulmonary disease) COVID-19 Depression Dietary counseli
--- NOTE | 2023-02-08 03:28 | ED.GENADULT ---
HPI - General Adult General Chief complaint: Abdominal Pain Stated complaint: abd pain, N/V Time Seen by Provider: 02/07/23 23:28 History of Present Illness HPI narrative: Patient 62-year-old female who presents the emergency room with chief complaint of abdominal pain nausea vomiting and diarrhea. Patient reports she been having symptoms since the first and reports she has been told recently by her primary provider that she may have ulcerative colitis or Crohn's. Patient reports that she has had diffuse pain throughout her abdomen somewhat improved by anything. Related Data Allergies Allergy/AdvReac Type Severity Reaction Status Date / Time hydrocodone Allergy Unknown Nausea and Verified 02/07/23 23:26 Vomiting codeine AdvReac Severe Nausea and Verified 02/07/23 23:26 Vomiting Review of Systems Review of Systems: A 10 system review of systems was completed on the patient and is negative except for what is stated in the HPI. Nursing and ancillary documentation was reviewed. [facility] Past Medical History Medical History (Updated 02/08/23 @ 03:30 by Kali Miller MD) Acute bronchitis due to other specified organisms Acute sinusitis, unspecified BMI 35.0-35.9,adult BMI 36.0-36.9,adult BMI 37.0-37.9, adult COPD (chronic obstructive pulmonary disease) COVID-19 Depression Dietary counseling and surveillance (09/30/16) Elevated liver function tests Emphysema/COPD Essential (primary) hypertension Fatty liver Fatty liver Flu vaccine need Hyperlipidemia Hypertension [place] (obstructive sleep apnea) Other abnormal glucose Other hyperlipidemia Sebaceous cyst Shortness of breath Type 2 diabetes mellitus Type 2 diabetes mellitus without complication Uncontrolled type 2 diabetes mellitus with complication, without long-term current use of insulin Vaginal candidiasis Family History Family History Father Heart disease Mother Heart disease Sibling Heart disease Acute myocardial infarction Sibling Heart disease Hypertension Diabetes mellitus Vitamin D deficiency Cancer Other Cerebrovascular accident Family history of coronary artery disease Social History Social History Smoking status: Former smoker Tobacco type: cigarettes Second hand tobacco smoke exposure: Yes Alcohol intake: current Substance use: never Substance use type: does not use Lack of Transportation: No Lack of Food: Never True Current Housing: I Have Housing Concerned About Future Housing: No Difficulty Paying Gas/Electric Bills: No Difficulty Paying for Meds: No Currently Unemployed: No Education: High School Diploma/GED Difficulty w/ Childcare or Family Care: No Living arrangements: with family Occupation/Education: retired Additional occupation/education comments: disabled Gender identity (if verbalized by the patient): Female Sexual Orientation (if Verbalized by the Patient): Straight or Heterosexual Exam Narrative: GENERAL: Well-appearing, well-nourished, and in no acute distress. HEAD: Normocephalic, atraumatic. EYES: PERRLA and EOMI. ENT: Nares clear, no rhinorrhea or epistaxis. Mucous membranes moist. NECK: Supple. CHEST: Clear to auscultation. No respiratory distress. HEART: Regular rate and rhythm. No murmur heard. Normal peripheral pulses. ABDOMEN: Soft, diffusely tender to palpation, nondistended, normal active bowel sounds. EXTREMITIES: Normal range of motion. No edema. SKIN: Warm, dry, no rash. NEURO: No focal deficits. Alert and oriented x3. PSYCH: Normal mood and affect. Course Vital Signs Vital signs: Vital Signs Temperature 36.6 C 02/07/23 21:19 Pulse Rate 94 02/07/23 21:19 Respiratory Rate 16 02/07/23 21:19 Blood Pressure 150/99 H 02/07/23 21:19 Pulse Oximetry 98 0
[2023-02-08] MEDS: SODIUM CHLORIDE 0.9% IV 1,000 ML 125 ML IV CONT ×2 (06:53→17:12)
[2023-02-08] MEDS: levoFLOXacin 750 MG/D5W 150 ML 750 MG/150 ML BAG 100 MG IVPB (10:07)
[2023-02-08] MEDS: metroNIDAZOLE 500 MG/ISO 100ML 500 MG/100 ML BAG 100 MG IVPB ×2 (11:41→17:12)
--- NOTE | 2023-02-08 20:18 | WPDGICN ---
Assessment and Plan Assessment and plan (1) Intractable nausea and vomiting: Code(s): R11.2 - Nausea with vomiting, unspecified Status: Acute Assessment and Plan: new onset also noted history of DM, ? dysmotility, gastroenteritis, PUD, etc liquid diet but if no clinical improvement will proceed with egd (2) Epigastric pain: Code(s): R10.13 - Epigastric pain Status: Acute Assessment and Plan: ppi for now antiemetics may need egd (3) Chronic diarrhea: Code(s): K52.9 - Noninfective gastroenteritis and colitis, unspecified Status: Acute Assessment and Plan: almost 2 years will check inflammatory markers, stool sample, also elastase (noted in medical records that she may have EPI) she does not want to have colonoscopy- will talk again tomorrow about it she was started empirically on abx (4) Emphysema/COPD: Code(s): J43.9 - Emphysema, unspecified Status: Acute (5) Uncontrolled type 2 diabetes mellitus: Qualifiers: Glycemic state: with hyperglycemia Qualified Code(s): E11.65 - Type 2 diabetes mellitus with hyperglycemia Code(s): E11.65 - Type 2 diabetes mellitus with hyperglycemia Status: Acute GI Consult Note Consult date/time: 02/08/23 20:18 Reason for consult: epigastric pain, n/v, chronic diarrhea HPI: Larisa Mason is a 62 year old female with past medical history significant for hypertension, COPD/emphysema, type 2 diabetes mellitus, neuropathy, GERD on tums prn, obstructive sleep apnea on CPAP at nighttime, chronic diarrhea for almost 2 years (this is intermittent and not daily)- she says that had colonoscopy in 2019 with polyps removed, done in [place].?She came to the emergency room with abdominal distention, bloating, nausea, vomiting and more epigastric pain than usual that became more intense for the last 5 days. She was not able to keep anything down, denies any fevers. CT scan without SBO, showed liver steatosis. She is post cholecystectomy and hysterectomy. Review of Systems Constitutional: Constitutional: Denies chills Eyes: Eyes: Denies blurry vision ENT: Reports Normal hearing present Cardiovascular: Cardiovascular: Denies chest pain Respiratory: Respiratory: Denies cough Gastrointestinal: Gastrointestinal: Reports abdominal pain, Reports diarrhea, Reports nausea and Reports vomiting Genitourinary: Genitourinary: Denies hematuria Musculoskeletal: Musculoskeletal: Denies arthralgias Integumentary/Breasts: Skin/Breast: Denies rash Neurologic: Denies Abnormal speech present Psychiatric: Psychiatric: Denies behavioral changes [facility] Past Medical History Medical History (Updated 02/08/23 @ 20:21 by Collins Montaño MD) Acute bronchitis due to other specified organisms Acute sinusitis, unspecified BMI 35.0-35.9,adult BMI 36.0-36.9,adult BMI 37.0-37.9, adult COPD (chronic obstructive pulmonary disease) COVID-19 Depression Dietary counseling and surveillance (09/30/16) Elevated liver function tests Emphysema/COPD Epigastric pain Essential (primary) hypertension Fatty liver Fatty liver Flu vaccine need Hyperlipidemia Hypertension [place] (obstructive sleep apnea) Other abnormal glucose Other hyperlipidemia Sebaceous cyst Shortness of breath Type 2 diabetes mellitus Type 2 diabetes mellitus without complication Uncontrolled type 2 diabetes mellitus with complication, without long-term current use of insulin Vaginal candidiasis Family History Family History Father Heart disease Mother Heart disease Sibling Heart disease Acute myocardial infarction Sibling Heart disease Hypertension Diabetes mellitus Vitamin D deficiency Cancer Other Cerebrovascular accident Family history of coronary artery disease Social History Social History (Reviewed 02/08/23 @ 03:28 by Maritza
[2023-02-09] MEDS: metroNIDAZOLE 500 MG/ISO 100ML 500 MG/100 ML BAG 100 MG IVPB ×5 (00:59→23:15)
[2023-02-09] MEDS: ONDANSETRON INJ 4 MG/2 ML VIAL IV PUSH ×4 (03:52→21:59)
[2023-02-09] MEDS: MORPHINE SULFATE (*CRX) 4 MG/ML INJ IV PUSH ×2 (03:53→07:38)
[2023-02-09] MEDS: SODIUM CHLORIDE 0.9% IV 1,000 ML 125 ML IV CONT ×2 (03:55→15:29)
[2023-02-09 06:00] VITALS: BP 180/71; PULSE 84; RESP 16; TEMP 35.9; O2SAT 98
--- NOTE | 2023-02-09 06:24 | PC.NURSE ---
Spoke with Dr. Ngo at this time r/t elevated BP. New order received for hydralazine 10 mg IVP x1.
[2023-02-09] MEDS: hydrALAZINE HCL 20 MG/ML VIAL 10 MG IV PUSH ×2 (06:50→21:59)
[2023-02-09 07:08] LABS: CRP 1.4 mg/dL (<1.0)
[2023-02-09 07:11] LABS: Erythrocyte Sedimentation Rate 16 mm/hr (0-20)
[2023-02-09] MEDS: levoFLOXacin 750 MG/D5W 150 ML 750 MG/150 ML BAG 100 MG IVPB (09:20)
--- NOTE | 2023-02-09 10:54 | PM.IMPN ---
Progress Note: A&P Assessment and Plan (1) Pancolitis: Code(s): K51.00 - Ulcerative (chronic) pancolitis without complications Status: Acute Assessment and Plan: Admit to regular medical floor Started on Flagyl and levofloxacin Having epigastric pain. GI consult appreciated, plan for EGD. (2) Abdominal pain: Code(s): R10.9 - Unspecified abdominal pain Status: Acute Assessment and Plan: gastroenteritis, colitis Supportive care (3) Intractable nausea and vomiting: Code(s): R11.2 - Nausea with vomiting, unspecified Status: Acute Assessment and Plan: NPO Supportive care Likely secondary to 1. (4) Emphysema/COPD: Code(s): J43.9 - Emphysema, unspecified Status: Acute Assessment and Plan: Not actively wheezing (5) [place] (obstructive sleep apnea): Code(s): G47.33 - Obstructive sleep apnea (adult) (pediatric) Status: Acute Assessment and Plan: On CPAP at nighttime Subjective Date/time seen: 02/09/23 10:54 Interval history: Still complaining of epigastric pain. Exam Narrative: Patient is sitting in stretcher in semi upright position Const: General: comfortable, no acute distress, well developed, alert, awake, ill appearing chronically, tired appearing, average body habitus and overweight Nutritional Appearance: average body habitus and overweight Orientation/consciousness: patient oriented x3 HENMT: Head: normal to inspection, normocephalic and atraumatic Ears: hearing grossly normal bilaterally Face/Nose/Sinus: normal facial exam Face and sinus: normal facial exam Eyes: General: appearance normal, both eyes and all related structures Pupils: Equal, round and reactive pupils present EOM: EOMs intact bilaterally Neck: Neck: full ROM, no lymphadenopathy and no JVD Thyroid: thyroid normal Lymphatic: no lymphadenopathy noted Resp: Effort & Inspection: normal respiratory effort and able to speak in complete sentences Auscultation: clear to auscultation bilaterally Cardio: Jugular venous distension: no JVD Rate: regular rate Rhythm: regular rhythm Heart sounds: S1 normal heart sound present and S2 normal heart sound present GI: Inspection: distended, striae and other (Psoriatic patches) : General: Yes deferred Skin: Rashes: no rashes Wounds: no wounds Neuro: General: patient oriented x3, CN's II-XI intact bilaterally and Unable to assess gait Cranial nerves: Yes CN's II-XII intact bilaterally and Yes Equal, round and reactive pupils present Cognition (Neuro): normal cognition Speech: normal speech Gait exam (Neuro): Unable to assess gait Motor exam (neuro): 5/5 motor strength present throughout Sensory Exam: No Sensory deficit (Neuro) Extrem: General: normal to inspection, full ROM, no joint enlargement and no pedal edema Objective Data Vital Signs Vital Signs: Vital Signs - 24 hr 02/08/23 13:53 02/08/23 20:30 02/08/23 20:00 Temperature 96.9 F L 96.8 F L Pulse Rate 101 H 82 82 Respiratory Rate 18 20 20 Blood Pressure 151/83 H 177/86 H Pulse Oximetry 96 95 95 Oxygen Delivery Room Air 02/09/23 06:00 Temperature 96.7 F L Pulse Rate 84 Respiratory Rate 16 Blood Pressure 180/71 H Pulse Oximetry 98 Oxygen Delivery Intake/Output Intake/Output: Intake & Output 02/06/23 02/07/23 02/08/23 02/09/23 23:59 23:59 23:59 23:59 Intake Total 2350 1100 Output Total 530 2325 Balance 1820 -1225 Meds/Results Medications: Active Medications Generic Name Dose Route Start Last Admin Trade Name Freq PRN Reason Stop Dose Admin Bupropion HCl 150 mg 02/08/23 09:00 02/08/23 16:25 Bupropion Hcl Xl (24 Hr) 150 Mg Tabcr PO Not Given QAM MELANIE Clobetasol Propionate 1 applic 02/08/23 08:50 Clobetasol Propionate 0.05% Cream 15 Gm TOPICAL BID PRN psoriasis Hydromorphone HCl 0.5 mg 02/09/23 09:57 Hydromorphone Hcl Inj (*Crx) 1 Mg/Ml Syr IV PUSH Q2H
[2023-02-09] MEDS: HYDROmorphone HCL INJ (*CRX) 1 MG/ML SYR 0.5 MG IV PUSH ×5 (10:55→23:16)
--- NOTE | 2023-02-09 11:26 | PC.NURSE ---
Assessment charted by HAYDEE Charles reviewed and verified by ELISEO Frank.
[2023-02-09 14:00] VITALS: BP 184/105; PULSE 117; RESP 18; TEMP 36.6; O2SAT 96
[2023-02-09 15:28] VITALS: BP 134/68
--- NOTE | 2023-02-09 15:57 | WPDGIPROGNO ---
Progress Note: A&P Assessment and Plan (1) Epigastric pain: Code(s): R10.13 - Epigastric pain Status: Acute Assessment and Plan: will evaluate with egd tomorrow differential could be gastroparesis, pud, gastroenteritis, etc (2) Intractable nausea and vomiting: Code(s): R11.2 - Nausea with vomiting, unspecified Status: Acute Assessment and Plan: on meds as needed (3) Generalized abdominal pain: Code(s): R10.84 - Generalized abdominal pain Status: Acute (4) Nausea: Code(s): R11.0 - Nausea Status: Acute (5) Uncontrolled type 2 diabetes mellitus: Qualifiers: Glycemic state: with hyperglycemia Qualified Code(s): E11.65 - Type 2 diabetes mellitus with hyperglycemia Code(s): E11.65 - Type 2 diabetes mellitus with hyperglycemia Status: Acute (6) Diarrhea: Qualifiers: Diarrhea type: unspecified type Qualified Code(s): R19.7 - Diarrhea, unspecified Code(s): R19.7 - Diarrhea, unspecified Status: Acute Assessment and Plan: she does not want to have colonoscopy, this is mostly chronic per patient Subjective Date/time seen: 02/09/23 15:57 Interval history: still with epigastric pain and nausea Review of Systems Review of Systems: All systems reviewed & are unremarkable except as noted in HPI and below Exam Const: General: comfortable and no acute distress HENMT: Face/Nose/Sinus: Normal nares present Eyes: General: appearance normal, both eyes and all related structures Neck: Neck: supple Resp: Auscultation: clear to auscultation bilaterally Cardio: Rate: regular rate Rhythm: regular rhythm GI: Inspection: distended GI Palp: Yes Soft to palpation, Yes Tenderness to palpation present (GI) (epigastric, no rebound) and No Guarding due to palpation present (GI) Skin: General skin exam: normal color Neuro: Speech: normal speech Motor exam (neuro): 5/5 motor strength present throughout Extrem: General: normal to inspection Psych: Mental Status: mental status grossly normal Objective Data Vital Signs Vital Signs: Vital Signs - 24 hr 02/08/23 20:30 02/08/23 20:00 02/09/23 06:00 Temperature 96.8 F L 96.7 F L Pulse Rate 82 82 84 Respiratory Rate 20 20 16 Blood Pressure 177/86 H 180/71 H Pulse Oximetry 95 95 98 Oxygen Delivery Room Air 02/09/23 14:00 02/09/23 15:28 Temperature 97.8 F Pulse Rate 117 H Respiratory Rate 18 Blood Pressure 184/105 H 134/68 Pulse Oximetry 96 Oxygen Delivery Intake/Output Intake/Output: Intake & Output 02/06/23 02/07/23 02/08/23 02/09/23 23:59 23:59 23:59 23:59 Intake Total 2350 2450 Output Total 530 3500 Balance 1820 -1050 Meds/Results Medications: Active Medications Generic Name Dose Route Start Last Admin Trade Name Freq PRN Reason Stop Dose Admin Bupropion HCl 150 mg 02/08/23 09:00 02/09/23 09:00 Bupropion Hcl Xl (24 Hr) 150 Mg Tabcr PO Not Given QAM MELANIE Clobetasol Propionate 1 applic 02/08/23 08:50 Clobetasol Propionate 0.05% Cream 15 Gm TOPICAL BID PRN psoriasis Hydromorphone HCl 0.5 mg 02/09/23 09:57 02/09/23 14:19 Hydromorphone Hcl Inj (*Crx) 1 Mg/Ml Syr IV PUSH 0.5 mg Q2H PRN Administration Pain Rated 7-10 Levofloxacin/Dextrose 750 mg in 150 mls @ 100 mls/hr 02/08/23 09:00 02/09/23 10:50 Levaquin 750 Mg/D5w 150 Ml IVPB Infused Q24H MELANIE Infusion Metronidazole 500 mg in 100 mls @ 100 mls/hr 02/08/23 11:00 02/09/23 13:45 Flagyl 500 Mg/Iso Soln 100 Ml IVPB Infused Q6HR MELANIE Infusion Sodium Chloride 1,000 mls @ 125 mls/hr 02/08/23 03:25 02/09/23 15:29 Normal Saline Iv IV CONT 125 mls/hr .Q8H MELANIE Administration Lisinopril 40 mg 02/09/23 09:00 02/09/23 09:00 Lisinopril 20 Mg Tablet PO Not Given QAM MEALNIE Ondansetron HCl 4 mg 02/08/23 07:55 02/09/23 07:38 Ondansetron Inj 4 Mg/2 Ml Vial IV PUSH 4 mg Q4H
--- NOTE | 2023-02-09 16:31 | PC.NURSE ---
Pt has had reports of pain and nausea/vomiting throughout the shift. Pt medication changed. Pt able to rest some this afternoon. Pt getting EGD tomorrow. Will obtain consent when pt wakes up. Pt PO meds held due to vomiting, Provider notified. Pt had increased BP. Multiple attempts made to get in contact with provider. Pt BP came down once pt was able to rest. Will continue to monitor pt.
--- NOTE | 2023-02-09 17:29 | PC.NURSE ---
Pt reports having a reaction to anesthesia when attempting to obtain consent. Charge nurse notified. fence supervisor will be contacted to find out who to report reaction to. Will attempt consent when i hear back.
[2023-02-09 21:30] VITALS: BP 205/98; PULSE 110; RESP 20; TEMP 36.2; O2SAT 96
[2023-02-10] VITALS (12 sets, daily range): BP systolic 96–224; BP diastolic 50–104; PULSE 102–115; RESP 16–20; TEMP 35.5–36.5; O2SAT 95–99
[2023-02-10] MEDS: SODIUM CHLORIDE 0.9% IV 1,000 ML 125 ML IV CONT ×2 (02:27→17:16)
[2023-02-10] MEDS: HYDROmorphone HCL INJ (*CRX) 1 MG/ML SYR 0.5 MG IV PUSH ×7 (02:31→23:04)
[2023-02-10] MEDS: ONDANSETRON INJ 4 MG/2 ML VIAL IV PUSH ×4 (02:32→20:41)
[2023-02-10] MEDS: metroNIDAZOLE 500 MG/ISO 100ML 500 MG/100 ML BAG 100 MG IVPB ×4 (06:16→23:05)
[2023-02-10] MEDS: levoFLOXacin 750 MG/D5W 150 ML 750 MG/150 ML BAG 100 MG IVPB (09:19)
[2023-02-10] MEDS: PANTOPRAZOLE SODIUM IV 40 MG VIAL IV PUSH (09:19)
--- NOTE | 2023-02-10 10:48 | WPDANESEPPF ---
Anes - Initial Pre Proc Eval Procedure: Operation Date: 02/10/23 14:45 Proposed Procedures p Esophagogastroduodenoscopy - Collins Montaño MD Date/Time: 02/10/23 10:48 Surgeon: Gisele Ngo MD Pre Op Diagnosis: Abdominal Pain/Pain Colitis Patient Data Age: 62 Gender: F Height: 1.73 m Weight: 106.7 kg Last Vital Signs Temp 35.9 C L 02/10/23 05:45 Pulse 111 H 02/10/23 05:45 Resp 16 02/10/23 05:45 BP 152/78 H 02/10/23 05:45 Pulse Ox 98 02/10/23 05:45 O2 Del Method Room Air 02/08/23 20:00 Allergies Allergy/AdvReac Type Severity Reaction Status Date / Time codeine AdvReac Severe Nausea and Verified 02/10/23 11:27 Vomiting hydrocodone AdvReac Unknown Nausea and Verified 02/10/23 11:27 Vomiting Home Medications Medication Instructions Recorded Confirmed Type clobetasol 0.05 % topical cream 1 applic topical BID PRN psoriasis 05/08/21 02/08/23 Rx #60 grams benazepril 40 mg tablet 40 mg PO DAILY #90 tabs 07/05/21 02/08/23 Rx sertraline 100 mg tablet 100 mg PO DAILY #180 tabs 03/05/22 02/08/23 Rx cholecalciferol (vitamin D3) 25 25 mcg PO DAILY #90 caps 06/18/22 02/08/23 Rx mcg (1,000 unit) capsule pregabalin 100 mg capsule (Lyrica) 100 mg PO BID #60 caps 09/24/22 02/08/23 Rx semaglutide 1 mg/dose (2 mg/1.5 1 mg (0.75 mL) subcut WEEKLY #9 mL 09/24/22 02/08/23 Rx mL) subcutaneous pen injector bupropion HCl 150 mg 24 hr tablet, 150 mg PO QAM #30 tabs 01/21/23 02/08/23 Rx extended release (Wellbutrin XL) diphenoxylate-atropine 2.5 1 tablet PO DAILY PRN diarrhea #30 01/21/23 02/08/23 Rx mg-0.025 mg tablet (Lomotil) tabs tramadol 50 mg tablet 50 mg PO Q3-4H PRN pain #30 tabs 01/21/23 02/08/23 Rx Patient hx anesthesia problems: none Family hx anesthesia problems: none Results Review: All pre-operative results and documents have been reviewed as part of the pre-operative evaluation. [facility] Past Medical History Medical History (Updated 02/10/23 @ 11:00 by Abraham Charles MD) Acute bronchitis due to other specified organisms Acute sinusitis, unspecified Anxiety BMI 35.0-35.9,adult BMI 36.0-36.9,adult BMI 37.0-37.9, adult CAD (coronary artery disease) COPD (chronic obstructive pulmonary disease) COVID-19 Depression Dietary counseling and surveillance (09/30/16) Elevated liver function tests Emphysema/COPD Epigastric pain Essential (primary) hypertension Fatty liver Fatty liver Flu vaccine need History of CVA (cerebrovascular accident) Hyperlipidemia Hypertension Neuropathy [place] (obstructive sleep apnea) Other abnormal glucose Other hyperlipidemia Psoriasis Sebaceous cyst Shortness of breath TIA (transient ischemic attack) Type 2 diabetes mellitus Type 2 diabetes mellitus without complication Uncontrolled type 2 diabetes mellitus Uncontrolled type 2 diabetes mellitus with complication, without long-term current use of insulin Vaginal candidiasis Family History Family History Father Heart disease Mother Heart disease Sibling Heart disease Acute myocardial infarction Sibling Heart disease Hypertension Diabetes mellitus Vitamin D deficiency Cancer Other Cerebrovascular accident Family history of coronary artery disease Social History Social History Smoking status: Former smoker Tobacco type: cigarettes Second hand tobacco smoke exposure: Yes Alcohol intake: never Substance use: never Substance use type: does not use Lack of Transportation: No Lack of Food: Never True Current Housing: I Have Housing Concerned About Future Housing: No Difficulty Paying Gas/Electric Bills: No Difficulty Paying for Meds: No Currently Unemployed: No Education: High School Diploma/GED Difficulty w/ Childcare or Family Care: No Living arrangements: wi
--- NOTE | 2023-02-10 10:49 | PM.IMPN ---
Progress Note: A&P Assessment and Plan (1) Pancolitis: Code(s): K51.00 - Ulcerative (chronic) pancolitis without complications Status: Acute Assessment and Plan: Admit to regular medical floor Started on Flagyl and levofloxacin Having epigastric pain. GI consult appreciated, plan for EGD and possible colonoscopy. (2) Abdominal pain: Code(s): R10.9 - Unspecified abdominal pain Status: Acute Assessment and Plan: gastroenteritis, colitis Supportive care (3) Intractable nausea and vomiting: Code(s): R11.2 - Nausea with vomiting, unspecified Status: Acute Assessment and Plan: NPO Supportive care Likely secondary to 1. (4) Emphysema/COPD: Code(s): J43.9 - Emphysema, unspecified Status: Acute Assessment and Plan: Not actively wheezing (5) [place] (obstructive sleep apnea): Code(s): G47.33 - Obstructive sleep apnea (adult) (pediatric) Status: Acute Assessment and Plan: On CPAP at nighttime Subjective Date/time seen: 02/10/23 10:49 Interval history: no new issues pain is improved no bleeding, no emesis today Exam Narrative: Patient is sitting in stretcher in semi upright position Const: General: comfortable, no acute distress, well developed, alert, awake, ill appearing chronically, tired appearing, average body habitus and overweight Nutritional Appearance: average body habitus and overweight Orientation/consciousness: patient oriented x3 HENMT: Head: normal to inspection, normocephalic and atraumatic Ears: hearing grossly normal bilaterally Face/Nose/Sinus: normal facial exam Face and sinus: normal facial exam Eyes: General: appearance normal, both eyes and all related structures Pupils: Equal, round and reactive pupils present EOM: EOMs intact bilaterally Neck: Neck: full ROM, no lymphadenopathy and no JVD Thyroid: thyroid normal Lymphatic: no lymphadenopathy noted Resp: Effort & Inspection: normal respiratory effort and able to speak in complete sentences Auscultation: clear to auscultation bilaterally Cardio: Jugular venous distension: no JVD Rate: regular rate Rhythm: regular rhythm Heart sounds: S1 normal heart sound present and S2 normal heart sound present GI: Inspection: distended, striae and other (Psoriatic patches) : General: Yes deferred Skin: Rashes: no rashes Wounds: no wounds Neuro: General: patient oriented x3, CN's II-XI intact bilaterally and Unable to assess gait Cranial nerves: Yes CN's II-XII intact bilaterally and Yes Equal, round and reactive pupils present Cognition (Neuro): normal cognition Speech: normal speech Gait exam (Neuro): Unable to assess gait Motor exam (neuro): 5/5 motor strength present throughout Sensory Exam: No Sensory deficit (Neuro) Extrem: General: normal to inspection, full ROM, no joint enlargement and no pedal edema Objective Data Vital Signs Vital Signs: Vital Signs - 24 hr 02/09/23 14:00 02/09/23 15:28 02/09/23 21:30 Temperature 97.8 F 97.2 F L Pulse Rate 117 H 110 H Respiratory Rate 18 20 Blood Pressure 184/105 H 134/68 205/98 H Pulse Oximetry 96 96 02/10/23 00:00 02/10/23 05:45 Temperature 96.7 F L Pulse Rate 111 H Respiratory Rate 16 Blood Pressure 134/67 152/78 H Pulse Oximetry 98 Intake/Output Intake/Output: Intake & Output 02/07/23 02/08/23 02/09/23 02/10/23 23:59 23:59 23:59 23:59 Intake Total 2350 3550 100 Output Total 530 4650 500 Balance 1820 -1100 -400 Meds/Results Medications: Active Medications Generic Name Dose Route Start Last Admin Trade Name Freq PRN Reason Stop Dose Admin Bupropion HCl 150 mg 02/08/23 09:00 02/10/23 09:17 Bupropion Hcl Xl (24 Hr) 150 Mg Tabcr PO Not Given QAM MELANIE Clobetasol Propionate 1 applic 02/08/23 08:50 Clobetasol Propionate 0.05% Cream 15 Gm TOPICAL BID PRN psoriasis Hydromorphone HCl 0.5 mg 02/09/23 09:57 02/10/23 08:40
[2023-02-10] MEDS: LACTATED RINGERS 1,000 ML 150 ML IV CONT (11:38)
[2023-02-10] MEDS: hydrALAZINE HCL 20 MG/ML VIAL 10 MG IV PUSH (16:34)
--- NOTE | 2023-02-10 17:59 | PC.NURSE ---
Pt continues to report pain today. Pt still experiencing nausea and vomiting. Pt went for EGD today. Pt advanced to diabetic consistent carb diet. Pt reports not wanting to eat due to nausea. Will continue to monitor pt.
[2023-02-10 21:54] LABS: Glucose Point of Care 251 mg/dl (65-105)
[2023-02-11 00:45] VITALS: BP 145/78
[2023-02-11] MEDS: ONDANSETRON INJ 4 MG/2 ML VIAL IV PUSH ×2 (01:29→05:46)
[2023-02-11] MEDS: HYDROmorphone HCL INJ (*CRX) 1 MG/ML SYR 0.5 MG IV PUSH ×3 (02:30→09:49)
[2023-02-11] MEDS: metroNIDAZOLE 500 MG/ISO 100ML 500 MG/100 ML BAG 100 MG IVPB ×2 (05:28→11:52)
[2023-02-11] MEDS: SODIUM CHLORIDE 0.9% IV 1,000 ML 125 ML IV CONT (05:48)
[2023-02-11 06:00] VITALS: BP 210/104; PULSE 100; RESP 20; TEMP 36.3; O2SAT 98
[2023-02-11] MEDS: hydrALAZINE HCL 20 MG/ML VIAL 10 MG IV PUSH (06:33)
[2023-02-11 06:35] LABS: Basophils Absolute Auto 0.1 K/mm3 (0.0-0.1); Basophils Percent Auto 0.3 % (0.2-1.2); Eosinophils Percent Auto 0.1 % (0-4.4); Hematocrit 48.8 % (37.0-47.0); Hemoglobin 16.6 g/dL (12.0-15.0); Immature Granulocyte Absolute 0.16 K/mm3 (0.00-0.031); Immature Granulocyte Percent A 0.9 % (0-0.5); Lymphocytes Absolute Auto 3.46 K/mm3 (0.9-3.2); Lymphocytes Percent Auto 18.7 % (18.3-44.2); Mean Corpuscular Hemoglobin 29.9 pg (26-34); Mean Corpuscular Volume 87.8 fl (80-100); Mean Platelet Volume 11.9 fl (7.4-10.4); Monocytes Absolute Auto 1.2 K/mm3 (0.1-0.6); Monocytes Percent Auto 6.6 % (2.6-8.5); Neutrophils Absolute Auto 13.6 K/mm3 (1.3-6.7); Neutrophils Percent Auto 73.4 % (45.5-73.1); Platelet Count Result 229 k/mm3 (150-375); Red Blood Count 5.56 M/mm3 (4.2-5.4); Red Cell Distribution Width 13.6 % (11.5-14.5); White Blood Count 18.5 K/mm3 (4.5-10.0)
[2023-02-11 06:49] LABS: Anion Gap 14 mmol/L (8-16); Blood Urea Nitrogen 10 mg/dL (7-17); Calcium 8.5 mg/dL (8.4-10.2); Carbon Dioxide 23 mmol/L (22-30); Chloride 101 mmol/L (98-107); Estimated CRCL calculation 121 ml/min; Estimated Glomerular Filt Rate > 60; Glucose 229 mg/dL (65-110); Potassium 3.2 mmol/L (3.4-5.0); Sodium 138 mmol/L (137-145)
[2023-02-11 07:46] LABS: Glucose Point of Care 260 mg/dl (65-105)
--- NOTE | 2023-02-11 09:33 | P.PNAN_ITS ---
Anes - Prog Note Post-Op Date/Time: 02/11/23 09:33 Cardiovascular status: normal Respiratory status: normal Airway patency: baseline Mental status: baseline Post-Op hydration status: normal Vital Signs: Last Vital Signs Temp 97.4 F L 02/11/23 06:00 Pulse 100 02/11/23 06:00 Resp 20 02/11/23 06:00 BP 210/104 H 02/11/23 06:00 Pulse Ox 98 02/11/23 06:00 O2 Del Method Room Air 02/10/23 13:39 Pain Score (VAS): 6 I/O: Intake & Output 02/10/23 02/11/23 02/11/23 23:59 07:59 15:59 Intake Total 650 1400 480 Output Total 450 1100 Balance 200 300 480 Laboratory Tests 02/11/23 06:27 02/11/23 06:27 02/10/23 02/11/23 02/11/23 21:52 06:27 07:40 WBC 18.5 H RBC 5.56 H Hgb 16.6 H Hct 48.8 H MCV 87.8 MCH 29.9 MCHC 34.0 RDW 13.6 Plt Count 229 MPV 11.9 H Immature Gran % (Auto) 0.9 H Neut % (Auto) 73.4 H Lymph % (Auto) 18.7 [place] % (Auto) 6.6 Eos % (Auto) 0.1 Baso % (Auto) 0.3 Lymph # (Auto) 3.46 H [place] # (Auto) 1.2 H Eos # (Auto) 0.0 Baso # (Auto) 0.1 Abs Immat Gran (auto) 0.16 H Absolute Neuts (auto) 13.6 H Absolute Nucleated RBC 0.0 Nucleated RBC % 0.0 Sodium 138 Potassium 3.2 L Chloride 101 Carbon Dioxide 23 Anion Gap 14 BUN 10 Creatinine 0.50 L Estim Creat Clear Calc 121 Estimated GFR > 60 Glucose 229 H POC Capillary Glucose 251 H 260 H Calcium 8.5 Microbiology 02/07/23 21:54 Urine Clean Catch Urine Culture - Preliminary Yeast Present on culture Post-procedural complaints: none Patient Feedback: Patient satisfied with anesthetic care.
[2023-02-11] MEDS: levoFLOXacin 750 MG/D5W 150 ML 750 MG/150 ML BAG 100 MG IVPB (09:48)
--- NOTE | 2023-02-11 11:08 | PM.IMPN ---
Progress Note: A&P Assessment and Plan (1) Pancolitis: Code(s): K51.00 - Ulcerative (chronic) pancolitis without complications Status: Acute Assessment and Plan: EGD shows gastritis. Continue PPI (2) Intractable nausea and vomiting: Code(s): R11.2 - Nausea with vomiting, unspecified Status: Acute Assessment and Plan: EGD shows gastritis. Continue PPI Supportive care Advanced diet as tolerated (3) Emphysema/COPD: Code(s): J43.9 - Emphysema, unspecified Status: Acute Assessment and Plan: Not actively wheezing (4) [place] (obstructive sleep apnea): Code(s): G47.33 - Obstructive sleep apnea (adult) (pediatric) Status: Acute Assessment and Plan: On CPAP at nighttime (5) Hypertension: Code(s): I10 - Essential (primary) hypertension Status: Acute Assessment and Plan: Blood pressure elevated. Resume benazepril at home dose. Increase hydralazine p.r.n. dosing Subjective Date/time seen: 02/11/23 11:08 Interval history: Patient still nauseated and not able to tolerate diet Review of Systems Review of Systems: All systems reviewed & are unremarkable except as noted in HPI and below Exam Const: General: comfortable, no acute distress, well developed, alert, awake, ill appearing chronically, tired appearing, average body habitus and overweight Nutritional Appearance: average body habitus and overweight Orientation/consciousness: patient oriented x3 HENMT: Head: normal to inspection, normocephalic and atraumatic Ears: hearing grossly normal bilaterally Face/Nose/Sinus: normal facial exam Face and sinus: normal facial exam Eyes: General: appearance normal, both eyes and all related structures Pupils: Equal, round and reactive pupils present EOM: EOMs intact bilaterally Neck: Neck: full ROM, no lymphadenopathy and no JVD Thyroid: thyroid normal Lymphatic: no lymphadenopathy noted Resp: Effort & Inspection: normal respiratory effort and able to speak in complete sentences Auscultation: clear to auscultation bilaterally Cardio: Jugular venous distension: no JVD Rate: regular rate Rhythm: regular rhythm Heart sounds: S1 normal heart sound present and S2 normal heart sound present GI: Inspection: distended, striae and other (Psoriatic patches) : General: Yes deferred Skin: Rashes: no rashes Wounds: no wounds Neuro: General: patient oriented x3, CN's II-XI intact bilaterally and Unable to assess gait Cranial nerves: Yes CN's II-XII intact bilaterally and Yes Equal, round and reactive pupils present Cognition (Neuro): normal cognition Speech: normal speech Gait exam (Neuro): Unable to assess gait Motor exam (neuro): 5/5 motor strength present throughout Sensory Exam: No Sensory deficit (Neuro) Extrem: General: normal to inspection, full ROM, no joint enlargement and no pedal edema Objective Data Vital Signs Vital Signs: Vital Signs - 24 hr 02/10/23 11:35 02/10/23 13:19 02/10/23 13:29 Temperature 97.7 F Pulse Rate 105 H 108 H 109 H Respiratory Rate 20 20 20 Blood Pressure 205/87 H 96/50 L 116/59 L Pulse Oximetry 98 95 96 Oxygen Delivery Room Air Room Air Room Air 02/10/23 13:39 02/10/23 15:58 02/10/23 14:00 Temperature 96 F L Pulse Rate 112 H 106 H Respiratory Rate 20 20 Blood Pressure 131/67 224/104 H 177/93 H Pulse Oximetry 97 99 Oxygen Delivery Room Air 02/10/23 14:10 02/10/23 22:00 02/10/23 22:33 Temperature 96.1 F L 97.2 F L Pulse Rate 104 H 115 H Respiratory Rate 18 20 Blood Pressure 167/80 H 202/88 H Pulse Oximetry 99 98 98 Oxygen Delivery 02/11/23 00:45 02/11/23 06:00 Temperature 97.4 F L Pulse Rate 100 Respiratory Rate 20 Blood Pressure 145/78 H 210/104 H Pulse Oximetry 98 Oxygen Delivery Intake/Output Intake/Output: Intake & Output 02/08/23 02/09/23 02/10/23 02/11/23 23:59 23:59 23:59 23:59 Intake Total 2350 / 2350 3550 / 3550 2300 / 230
[2023-02-11 11:36] LABS: Glucose Point of Care 246 mg/dl (65-105)
--- NOTE | 2023-02-11 14:50 | PC.NURSE ---
Pt is A&O4 female who participates and contributes in plan of care. Pt continues to report pain with nausea and vomiting. Pt states that the pain, comes out of nowhere . Pt BP has been elevated due to pain. Pt continues to refuse PO medication. Pt educated that elevated BP is likely due to pain and not taking medication. Pt continues to refuse PO meds. Will continue to monitor pt.
--- NOTE | 2023-02-11 15:53 | WPDGIPROGNO ---
Progress Note: A&P Assessment and Plan (1) Epigastric pain: Code(s): R10.13 - Epigastric pain Status: Acute Assessment and Plan: egd mild gastritis still symptomatic will get KUB (distended and with nausea) (2) Intractable nausea and vomiting: Code(s): R11.2 - Nausea with vomiting, unspecified Status: Acute Assessment and Plan: still with nausea and poor appetite may consider to get GES (h/o DM) (3) Gastritis: Code(s): K29.70 - Gastritis, unspecified, without bleeding Status: Acute Assessment and Plan: ppi (4) Leukocytosis: Code(s): D72.829 - Elevated white blood cell count, unspecified Status: Acute Assessment and Plan: she has been on abx since admission for possible gastroenteritis (5) Chronic diarrhea: Code(s): K52.9 - Noninfective gastroenteritis and colitis, unspecified Status: Acute Assessment and Plan: no more diarrhea she did not want to get colonoscopy awaiting stool samples Subjective Date/time seen: 02/11/23 15:53 Interval history: egd yesterday with mild gastritis no major findings, still with poor appetite, abdominal discomfort and nausea. No more BM since she is not eating. Review of Systems Review of Systems: All systems reviewed & are unremarkable except as noted in HPI and below Exam Const: General: No in distress HENMT: Face/Nose/Sinus: Normal nares present Eyes: Sclera: sclerae normal Neck: Neck: supple Resp: Effort & Inspection: normal respiratory effort Cardio: Rate: regular rate GI: Inspection: distended GI Palp: Yes Tenderness to palpation present (GI) (diffuse, no rebound) Skin: General skin exam: normal color Neuro: Speech: normal speech Motor exam (neuro): 5/5 motor strength present throughout Extrem: General: normal to inspection Psych: Affect: normal affect Objective Data Vital Signs Vital Signs: Vital Signs - 24 hr 02/10/23 15:58 02/10/23 22:00 02/10/23 22:33 Temperature 97.2 F L Pulse Rate 115 H Respiratory Rate 20 Blood Pressure 224/104 H 202/88 H Pulse Oximetry 98 98 Oxygen Delivery 02/11/23 00:45 02/11/23 06:00 02/11/23 09:49 Temperature 97.4 F L Pulse Rate 100 Respiratory Rate 20 Blood Pressure 145/78 H 210/104 H Pulse Oximetry 98 Oxygen Delivery Room Air Intake/Output Intake/Output: Intake & Output 02/08/23 02/09/23 02/10/23 02/11/23 23:59 23:59 23:59 23:59 Intake Total 2350 3550 2300 2370 Output Total 530 4650 950 1100 Balance 1820 -1100 1350 1270 Meds/Results Medications: Active Medications Generic Name Dose Route Start Last Admin Trade Name Freq PRN Reason Stop Dose Admin Bupropion HCl 150 mg 02/08/23 09:00 02/11/23 09:47 Bupropion Hcl Xl (24 Hr) 150 Mg Tabcr PO Not Given QAM [facility] Clobetasol Propionate 1 applic 02/08/23 08:50 Clobetasol Propionate 0.05% Cream 15 Gm TOPICAL BID PRN psoriasis Hydralazine HCl 20 mg 02/11/23 08:31 Hydralazine Hcl 20 Mg/Ml Vial IV PUSH Q6H PRN Blood Pressure - High Hydromorphone HCl 0.5 mg 02/09/23 09:57 02/11/23 09:49 Hydromorphone Hcl Inj (*Crx) 1 Mg/Ml Syr IV PUSH 0.5 mg Q2H PRN Administration Pain Rated 7-10 Levofloxacin 750 mg 02/12/23 09:00 Levofloxacin 750 Mg Tablet PO DAILY [facility] Lisinopril 40 mg 02/09/23 09:00 02/11/23 09:47 Lisinopril 20 Mg Tablet PO Not Given QAM [facility] Metronidazole 500 mg 02/11/23 18:00 Metronidazole 250 Mg Tablet PO Q6HR [facility] Ondansetron HCl 4 mg 02/08/23 07:55 02/11/23 05:46 Ondansetron Inj 4 Mg/2 Ml Vial IV PUSH 4 mg Q4H PRN Administration Nausea And Vomiting Pantoprazole Sodium 40 mg 02/11/23 09:00 02/11/23 09:48 Pantoprazole 40 Mg Tablet PO Not Given QAM [facility] Pregabalin 100 mg 02/08/23 09:00 02/11/23 09:48 Pregabalin (*Crx) 50 Mg Capsule PO Not Given BID [facility] Sertraline HCl 100 mg 02/08/23
[2023-02-11 16:00] VITALS: BP 185/113; PULSE 107; RESP 22; TEMP 36.2; O2SAT 100
[2023-02-11] MEDS: hydrALAZINE HCL 20 MG/ML VIAL IV PUSH (16:02)
[2023-02-11] MEDS: traMADol HCL (*CRX) 50 MG TABLET PO (16:02)
[2023-02-11 16:48] LABS: Glucose Point of Care 248 mg/dl (65-105)
[2023-02-11] MEDS: PREGABALIN (*CRX) 50 MG CAPSULE 100 MG PO (17:10)
[2023-02-11] MEDS: metroNIDAZOLE 250 MG TABLET 500 MG PO (17:10)
--- NOTE | 2023-02-11 18:18 | PM.DS ---
DS: Admitting Diagnosis Discharge Date 02/11/23 Admitting Diagnosis gastritis DS: Discharge Diagnosis Discharge Diagnosis (1) Gastritis: Code(s): K29.70 - Gastritis, unspecified, without bleeding Status: Acute (2) Hypertension: Code(s): I10 - Essential (primary) hypertension Status: Acute DS: Summary Hospital Course Hospital Course: (1) Epigastric pain: ?Code(s): R10.13 - Epigastric pain ?Status:?Acute ?Assessment and Plan: egd mild gastritis still symptomatic will get KUB (distended and with nausea) (2) Intractable nausea and vomiting: ?Code(s): R11.2 - Nausea with vomiting, unspecified ?Status:?Acute ?Assessment and Plan: still with nausea and poor appetite may consider to get GES (h/o DM) (3) Gastritis: ?Code(s): K29.70 - Gastritis, unspecified, without bleeding ?Status:?Acute ?Assessment and Plan: ppi (4) Leukocytosis: ?Code(s): D72.829 - Elevated white blood cell count, unspecified ?Status:?Acute ?Assessment and Plan: she has been on abx since admission for possible gastroenteritis (5) Chronic diarrhea: ?Code(s): K52.9 - Noninfective gastroenteritis and colitis, unspecified ?Status:?Acute ?Assessment and Plan: no more diarrhea she did not want to get colonoscopy awaiting stool samples patient left AMA Time Spent with Patient Time attestation: Total time spent providing and/or coordinating discharge services: DS: Data Data Completed and Pending Completed studies during hospitalization: Pending at discharge 02/10/23 13:15 Surgical [PTH] Routine Labs on day of discharge: Labs from last 24 hours 02/11/23 02/11/23 02/11/23 16:45 11:32 07:40 WBC RBC Hgb Hct MCV MCH MCHC RDW Plt Count MPV Immature Gran % (Auto) Neut % (Auto) Lymph % (Auto) [place] % (Auto) Eos % (Auto) Baso % (Auto) Lymph # (Auto) [place] # (Auto) Eos # (Auto) Baso # (Auto) Abs Immat Gran (auto) Absolute Neuts (auto) Absolute Nucleated RBC Nucleated RBC % Sodium Potassium Chloride Carbon Dioxide Anion Gap BUN Creatinine Estim Creat Clear Calc Estimated GFR Glucose POC Capillary Glucose 248 H 246 H 260 H Calcium 02/11/23 02/10/23 06:27 21:52 WBC 18.5 H RBC 5.56 H Hgb 16.6 H Hct 48.8 H MCV 87.8 MCH 29.9 MCHC 34.0 RDW 13.6 Plt Count 229 MPV 11.9 H Immature Gran % (Auto) 0.9 H Neut % (Auto) 73.4 H Lymph % (Auto) 18.7 [place] % (Auto) 6.6 Eos % (Auto) 0.1 Baso % (Auto) 0.3 Lymph # (Auto) 3.46 H [place] # (Auto) 1.2 H Eos # (Auto) 0.0 Baso # (Auto) 0.1 Abs Immat Gran (auto) 0.16 H Absolute Neuts (auto) 13.6 H Absolute Nucleated RBC 0.0 Nucleated RBC % 0.0 Sodium 138 Potassium 3.2 L Chloride 101 Carbon Dioxide 23 Anion Gap 14 BUN 10 Creatinine 0.50 L Estim Creat Clear Calc 121 Estimated GFR > 60 Glucose 229 H POC Capillary Glucose 251 H Calcium 8.5 Discharge Plan Discharge Consulting providers: Collins Montaño Discharging Clinician: Jesus Yoder Anticipated Discharge Date/Time: 02/11/23 18:17 Patient Disposition: Left Against Medical Advice Activity: no preference Diet: heart healthy Follow-up/Referrals: Andrei Burger MD [Primary Care Provider] - Discharge Medications: Continued benazepril 40 mg tablet 40 mg PO DAILY Qty: 90 3RF sertraline 100 mg tablet 100 mg PO DAILY Qty: 180 2RF cholecalciferol (vitamin D3) 25 mcg (1,000 unit) capsule 25 mcg PO DAILY Qty: 90 6RF bupropion HCl [Wellbutrin XL] 150 mg tablet extended release 24 hr 150 mg PO QAM Qty: 30 1RF diphenoxylate-atropine [Lomotil] 2.5-0.025 mg tablet 1 tablet PO DAILY PRN (Reason: diarrhea) Qty: 30 0RF tramadol 50 mg tablet 50 mg PO Q3-4H PRN (Reason: pain) Qty: 30 0RF
--- NOTE | 2023-02-11 18:41 | PC.NURSE ---
Pt has asked to leave to go to [facility]. Provider was notified. Charge nurse notified. Pt was told that in order to leave tonight pt was going to have to sign out AMA. AMA protocol was reviewed with pt. Pt was educated that leaving AMA meant we could no longer assist pt and that she would have to have her own transportation. Pt was educated on the repercussions of leaving AMA. Pt stated that she understood what it means to leave AMA and has agreed that she wants to proceed. Pt IV was removed and AMA form was signed. Pt is helping pt get dressed and will transport pt from here.
--- NOTE | 2023-02-11 19:45 | PC.NURSE ---
Pt left AMA by wheel chair with brother and at 1945. Papers were signed at [id number].
== END 2023-02-11 19:45 | disposition left against medical advice (07) | DRG 392 ==
LOC: ANHED 02-08 03:30 → ANH3MEDSUR 02-08 04:00
PROVIDERS: Chiropractor; Internal Medicine Gastroenterology; Admitting Provider Internal Medicine; Emergency Provider Emergency Medicine; PCP Family Medicine; Visit Provider Hospitalist
PROC: 0DJ08ZZ Inspection of Upper Intestinal Tract, Via Natural or Artificial Opening Endoscopic (ICD-10-PCS; CPT 43235; principal; 2023-02-10 14:45)
DX: K29.70 Gastritis, unspecified, without bleeding (principal); K51.00 Ulcerative (chronic) pancolitis without complications; K52.9 Noninfective gastroenteritis and colitis, unspecified; Z53.29 Procedure and treatment not carried out because of patient's decision for other reasons; J43.9 Emphysema, unspecified; G47.33 Obstructive sleep apnea (adult) (pediatric); I10 Essential (primary) hypertension
CPT/HCPCS: 36415; 74018; 74176; 80048; 80053; 81001; 82948; 83690; 85025; 85652; 86140; 87086; 87088; 88305; 96361; 96365; 96366; 96367; 96375; 96376; 99285; A9270; C9113; G0378; J0360; J1170; J1956; J2270; J2405; J2704; J7030; J7120

== ENCOUNTER 2023-04-24 07:31 | Outpatient (CLI) | payer MEDICARE, SELFPAY ==
[2023-04-24 10:52] LABS: Free T4 Free Thyroxine 0.97 ng/mL (0.78-2.19)
[2023-04-24 11:00] LABS: Cortisol Random 9.21 ug/dL
[2023-04-29 05:20] LABS: FSH 30.8 mIU/mL (***); LH 10.8 mIU/mL (***); Prolactin 12.9 ng/mL (***)
[2023-05-01 02:22] LABS: Adrenocorticotropic Hormone 40 pg/mL (6-50)
[2023-05-02 13:36] LABS: Z Score Female 0.5 SD (-2.0 - +2.0)
== END 2023-04-24 07:32 | disposition home or self-care (01) ==
PROVIDERS: PCP Family Medicine
DX: D35.2 Benign neoplasm of pituitary gland (principal)
CPT/HCPCS: 36415; 82024; 82533; 83001; 83002; 84146; 84305; 84439; 84443

== ENCOUNTER 2023-10-07 08:29 | Outpatient (CLI) | payer MEDICARE, SELFPAY ==
--- NOTE | ~2023-10-07 | MR_ITS ---
EXAMINATION: MR abdomen wo/w con DATE: 10/07/2023 09:44 INDICATION: Abnormal CT 7 months prior. Kidney disorder. TECHNIQUE: Magnetic resonance imaging (MRI) of the abdomen was performed without and with 20 mL Multi haider intravenous contrast. Sequences included coronal T2-weighted SS-FSE, coronal and axial FS 2D-F IESTA, axial STIR FSE, axial T2-weighted SS-FSE, axial T2-weighted FS SS-FSE, axial diffusion-weighte d SE, axial dual-echo T1-weighted FSPGR, and axial and coronal T1-weighted LAVA. Postcontrast axial T 1-weighted LAVA images were obtained in a time course. Postcontrast coronal T1-weighted LAVA images w ere obtained. COMPARISON: CT dated 02/08/2023 FINDINGS: Cardiomegaly. No pericardial or pleural effusion. Prominent diffuse hepatic steatosis. There are jesus ral small T2 hyperintense nonenhancing cysts scattered throughout the liver measuring up to 1.1 cm. C holecystectomy clips at the gallbladder fossa. No intra or extra hepatic biliary ductal dilation. Nieto creas, spleen and bilateral adrenal glands are normal. There are a few bilateral subcentimeter T2 hyp erintense nonenhancing cysts in both kidneys. 3.3 x 1.8 x 2.4 cm homogeneously T2 hyperintense cystic lesion without solid enhancing component anterior to the left psoas muscle and external iliac vessel s positioned along the left gonadal vein most likely an adnexal cyst. No pathologically enlarged abdo shaq or upper pelvic lymphadenopathy. Mild lumbar levocurvature with mild spondylosis. T1 and T2 hyp erintense hemangioma at L3. IMPRESSION: 1. Prominent diffuse hepatic steatosis. 2. A few scattered small hepatic and renal cysts. 3. Cardiomegaly. Reviewed, dictated and finalized at location A. BUNDLER
== END 2023-10-07 08:30 | disposition home or self-care (01) ==
PROVIDERS: PCP Family Medicine; Visit Provider Nurse Practitioner Family
DX: N28.1 Cyst of kidney, acquired (principal); K76.89 Other specified diseases of liver; I51.7 Cardiomegaly
CPT/HCPCS: 74183; A9577

== ENCOUNTER 2024-05-31 07:19 | Outpatient (CLI) | payer MEDICARE, SELFPAY ==
[2024-05-31 08:23] LABS: Hematocrit 49.2 % (37.0-47.0); Hemoglobin 16.7 g/dL (12.0-15.0); Mean Corpuscular HGB Conc 33.9 g/dl (32-36); Mean Corpuscular Hemoglobin 30.4 pg (26-34); Mean Corpuscular Volume 89.6 fl (80-100); Mean Platelet Volume 12.9 fl (7.4-10.4); Platelet Count Result 156 k/mm3 (150-375); Red Blood Count 5.49 M/mm3 (4.2-5.4); Red Cell Distribution Width 13.2 % (11.5-14.5); White Blood Count 9.2 K/mm3 (4.5-10.0)
[2024-05-31 08:47] LABS: LDL Cholesterol Direct 109 mg/dL
[2024-05-31 08:51] LABS: Alanine Aminotransferase 43 U/L (6-35); Albumin Level 4.2 g/dL (3.5-5.1); Alkaline Phosphatase 60 U/L (38-126); Anion Gap 11 mmol/L (4-12); Aspartate Amino Transferase 30 U/L (14-36); Bilirubin,Total 0.8 mg/dL (0.2-1.3); Blood Urea Nitrogen 12 mg/dL (7-17); Calcium 8.7 mg/dL (8.4-10.2); Carbon Dioxide 26 mmol/L (22-30); Chloride 97 mmol/L (98-107); Cholesterol 239 mg/dL (0-200); Estimated Glomerular Filt Rate > 60; Glucose 268 mg/dL (65-110); HDL Direct 33 mg/dL; Potassium 3.7 mmol/L (3.4-5.0); Sodium 134 mmol/L (137-145)
[2024-05-31 08:59] LABS: Triglycerides 582 mg/dL (<150)
[2024-05-31 10:31] LABS: Creatinine Urine 125.4 mg/dL
[2024-05-31 10:35] LABS: MALB Creatinine Ratio 25.7 mg/g (0-30); Microalbumin Urine Random 32.2 mg/L (0-16.7)
[2024-05-31 10:46] LABS: Vitamin D 25 Hydroxy 20.1 ng/mL
[2024-05-31 10:50] LABS: Erythrocyte Sedimentation Rate 12 mm/hr (0-20)
== END 2024-05-31 07:20 | disposition home or self-care (01) ==
LOC: ANHLAB 07:23
PROVIDERS: PCP Family Medicine; Visit Provider Nurse Practitioner Family
DX: I10 Essential (primary) hypertension (principal); E55.9 Vitamin D deficiency, unspecified; E11.65 Type 2 diabetes mellitus with hyperglycemia; M25.40 Effusion, unspecified joint; Z91.81 History of falling; Z86.73 Personal history of transient ischemic attack (TIA), and cerebral infarction without residual deficits
CPT/HCPCS: 36415; 80053; 80061; 82043; 82306; 84443; 85027; 85652; 86038; 86039

== ENCOUNTER 2024-07-25 07:48 | Outpatient (CLI) | payer MEDICARE, SELFPAY ==
[2024-07-25 08:39] LABS: Hematocrit 47.1 % (37.0-47.0); Hemoglobin 15.6 g/dL (12.0-15.0); Mean Corpuscular HGB Conc 33.1 g/dl (32-36); Mean Corpuscular Hemoglobin 29.9 pg (26-34); Mean Corpuscular Volume 90.4 fl (80-100); Mean Platelet Volume 12.2 fl (7.4-10.4); Platelet Count Result 147 k/mm3 (150-375); Red Blood Count 5.21 M/mm3 (4.2-5.4); Red Cell Distribution Width 13.2 % (11.5-14.5); White Blood Count 9.3 K/mm3 (4.5-10.0)
[2024-07-25 12:08] LABS: Immunoglobulin A 198 mg/dL (70-400)
[2024-07-25 12:16] LABS: LDL Cholesterol Direct 61 mg/dL
[2024-07-25 12:21] LABS: Alanine Aminotransferase 48 U/L (6-35); Albumin Level 4.1 g/dL (3.5-5.1); Alkaline Phosphatase 61 U/L (38-126); Anion Gap 9 mmol/L (4-12); Aspartate Amino Transferase 34 U/L (14-36); Bilirubin,Total 0.6 mg/dL (0.2-1.3); Blood Urea Nitrogen 8 mg/dL (7-17); Calcium 8.6 mg/dL (8.4-10.2); Carbon Dioxide 24 mmol/L (22-30); Chloride 104 mmol/L (98-107); Cholesterol 144 mg/dL (0-200); Estimated Glomerular Filt Rate > 60; Glucose 240 mg/dL (65-110); HDL Direct 34 mg/dL; Potassium 3.8 mmol/L (3.4-5.0); Sodium 137 mmol/L (137-145); Triglycerides 360 mg/dL (<150)
[2024-07-27 03:43] LABS: Tissue Transglutaminase IgA Ab <1.0 U/mL
[2024-07-28 14:44] LABS: NIL 0.02 IU/mL; Quantiferon TB Plus, 1T NEGATIVE (NEGATIVE); TB2-NIL 0.01 IU/mL
== END 2024-07-25 07:49 | disposition home or self-care (01) ==
PROVIDERS: PCP Family Medicine; Visit Provider Nurse Practitioner Family
DX: I10 Essential (primary) hypertension (principal); K58.2 Mixed irritable bowel syndrome; Z79.899 Other long term (current) drug therapy
CPT/HCPCS: 36415; 80053; 80061; 82784; 84443; 85027; 86364; 86480

== ENCOUNTER 2024-07-26 08:12 | Outpatient (CLI) | payer MEDICARE, SELFPAY ==
--- NOTE | ~2024-07-26 | CT_ITS ---
Non-contrast CT scan of the Abdomen Clinical indication: Fatty liver Technique: 2.5 mm axial scans were obtained through the abdomen without intravenous or oral contrast . Dose reduction technique was used on this scan by utilizing automated exposure control and iterativ e reconstruction technique. The dose-length product (DLP) was 778.39 mGy-cm. COMPARISON: 02/08/2023 Findings: Images through the lung bases reveal probable minimal bibasilar atelectatic change versus minimal chronic interstitial change. There is no evidence of renal or ureteral calculi. The kidneys and the ureters are nondilated. There is diffuse hepatic steatosis. Cholecystectomy clips are present. The spleen, pancreas, and adre nals appear normal. There are atherosclerotic calcifications of the aorta. . Visualized bowel loops are unremarkable. No ascites. Impression: Diffuse hepatic steatosis. Reviewed, dictated and finalized at [facility]. TAMP OPERATOR Impression: Diffuse hepatic steatosis.
== END 2024-07-26 08:13 | disposition home or self-care (01) ==
LOC: MICIMG 08:13
PROVIDERS: PCP Family Medicine; Visit Provider Nurse Practitioner Family
DX: K76.0 Fatty (change of) liver, not elsewhere classified (principal); N28.1 Cyst of kidney, acquired
CPT/HCPCS: 74150

== ENCOUNTER 2024-09-10 10:20 | Outpatient (CLI) | payer MEDICARE, SELFPAY ==
[2024-09-10 14:57] LABS: Toxigenic C. Diff NEGATIVE (NEGATIVE)
[2024-09-14 17:15] LABS: H pylori Ag Stool Not Detected
[2024-09-14 17:29] LABS: Campylobacter Group NOT DETECTED (NOT DETECTED); Norovirus GI/GII NOT DETECTED (NOT DETECTED); Rotavirus A NOT DETECTED (NOT DETECTED); Salmonella species NOT DETECTED (NOT DETECTED); Shiga Toxin 1 NOT DETECTED (NOT DETECTED); Shigella Species NOT DETECTED (NOT DETECTED); Vibrio Group NOT DETECTED (NOT DETECTED); Yersinia Enterolytica NOT DETECTED (NOT DETECTED)
== END 2024-09-10 10:21 | disposition home or self-care (01) ==
PROVIDERS: PCP Family Medicine
DX: K58.2 Mixed irritable bowel syndrome (principal)
CPT/HCPCS: 82653; 83993; 87272; 87338; 87493; 87506

== ENCOUNTER 2024-11-24 15:40 | Outpatient (CLI) | payer MEDICARE, SELFPAY ==
--- NOTE | ~2024-11-24 | MM_ITS ---
EXAMINATION: MM screening lottie BI w cesar HISTORY: Screening TECHNIQUE: Craniocaudal and mediolateral oblique 3-D tomosynthesis images were obtained and synthetic 2-D images were generated. CAD analysis was submitted and interpreted. COMPARISON: Comparison to multiple prior studies sequentially, with oldest reviewed study dated 12/22. BREAST PARENCHYMAL COMPOSITION: Dense: The breasts are heterogeneously dense, which may obscure small masses FINDINGS: There is no evidence of suspicious mass, calcification, or architectural distortion to sugg est malignancy in either breast. There has been no suspicious interval change. IMPRESSION: 1. No mammographic evidence of malignancy. 2. Recommend routine screening mammography in one year. BI-RADS Category 1: Negative Reviewed, dictated and finalized at location B.
== END 2024-11-24 15:41 | disposition home or self-care (01) ==
LOC: MICIMG 15:41
PROVIDERS: PCP Family Medicine; Visit Provider Nurse Practitioner Family
DX: Z12.31 Encounter for screening mammogram for malignant neoplasm of breast (principal)
CPT/HCPCS: 77063; 77067

== ENCOUNTER 2025-01-19 12:14 | Outpatient (CLI) | payer MEDICARE, SELFPAY ==
--- OUTSIDE RECORDS SUMMARY | 2025-01-19 12:26 | XMS_ITS | Clinical Summary ---
Author Organization [facility] Address [facility] [place] [address] Care Team Providers Care Cosmetic Consultant Name Role Phone Liana Sierra MARINE MAMMAL TRAINER Primary Care Provider + [phone] Allergies Active Allergy Reactions Criticality Noted Date Comments Codeine Other (see comment) 12/21/2023 Reaction: coma like state, , Hydrocodone-Acetamino phen Other (see comment) Low 03/22/2013 Puts patient in a coma like state Medications albuterol sulfate HFA 108 (90 Base) MCG/ACT inhaler INHALE 1 PUFF BY MOUTH EVERY 4 HOURS NEEDED FOR SHORTNESS OF BREATH OR WHEEZING Active atorvastatin (LIPITOR) 80 MG tablet Take 1 tablet (80 mg total) by mouth daily. 4 Active benazepril (LOTENSIN) 10 MG tablet Take 1 tablet (10 mg total) by mouth daily. Active BREZTRI AEROSPHERE 160-9-4.8 MCG/ACT Aerosol Inhale 2 puffs into the lungs 2 (two) times daily. 4 Active clobetasol (TEMOVATE) 0.05 % cream APPLY TOPICALLY TO AFFECTED AREA TWICE DAILY NEEDED FOR PSORIASIS Active LANTUS SOLOSTAR 100 UNIT/ML injection (PEN) INJECT 40 UNITS SUBCUTANEOUSLY TWICE DAILY Active insulin lispro, 1 Unit Dial, (HUMALOG) 100 UNIT/ML injection (PEN) INJECT 12 UNITS SUBCUTANEOUSLY THREE TIMES DAILY WITH MEALS. ADD 1-4 UNITS BASED ON SLIDING SCALE. MAX OF 80 UNITS PER DAY Active pregabalin (LYRICA) 100 MG capsule Take 1 capsule (100 mg total) by mouth 2 (two) times daily. Active MOUNJARO 7.5 MG/0.5ML injection once a week. Active sertraline (ZOLOFT) 100 MG tablet Take 1 tablet (100 mg total) by mouth daily. Active Active Problems No known active problems Family History Medical History Relation Comments Heart Attack Brother 1 Heart Attack Brother 2 Heart Attack Father Heart Attack Mother Relation Status Comments Brother 1 Brother 2 Father Mother Social History Tobacco Use Types Packs/Day Years Used Date Smoking Tobacco: Former Cigarettes Passive Smoke Exposure: Past Smokeless Tobacco: Never Alcohol Use Standard Drinks/Week Comments Not Currently 0 (1 standard drink = 0.6 oz pur e alcohol) Comments Unknown Sex and Gender Information Value Date Recorded Sex Assigned at Not on file Legal Sex Female 7:06 PM CDT Gender Identity Not on file Sexual Orientation Not on file Last Filed Vital Signs Vital Sign Reading Time Taken Comments Blood Pressure 142/74 04/11/2024 12:27 PM CDT Pulse 89 04/11/2024 12:27 PM CDT Temperature - - Respiratory Rate - - Oxygen Saturation 96% 04/11/2024 12:27 PM CDT Inhaled Oxygen Concentration - - Weight 110.7 kg (244 lb) 04/11/2024 12:27 PM CDT Height 170.2 cm (5' 7 ) 04/11/2024 12:27 PM CDT Body Mass Index 38.22 04/11/2024 12:27 PM CDT Plan of Treatment Health Maintenance Due Date Last Done Comments Colorectal Cancer Screening Colonoscopy (10 Years) 1958 Kidney Health Evaluation 1958 Diabetes: Retinopathy Eye Exam 1976 Hepatitis C 1976 Pneumococcal Vaccine: 50+ Years (1 of 2 - PCV) 1977 Mammogram Screening 1998 Zoster Vaccines (1 of 2) 2008 RSV Immunization or 60+ Years (1 - Risk 60-74 years 1-dose series) 2018 Lipid Panel 01/18/2022 01/18/2021 Hemoglobin A1C 06/17/2023 03/17/2023, 02/12/2023 Annual Medicare Wellness Visit 2023 Dexa Scan (General) 2023 COVID-19 Vaccine (3 - 2023-2 5 season) 2024 04/04/2021, 03/07/2021 DTaP, Tdap and Td Vaccines ( 2 - Td or Tdap) 09/08/2031 09/08/2021 Meningococcal B Vaccine Aged Out No l onger eligible based on patient's age to complete this topic Meningococcal Vaccine Aged Out No amanda tamia eligible based on patient's age to complete this topic RSV Immunizations Under 20 Months Aged Out No longer eligible b ased on patient's age to complete this topic Procedures Procedure Name Priority Date/Time Associated Diagnosis Comments LIPID PANEL Routine 01/18/2021 from Last 3 Months or Most Recently Relevant to Health Maintenance Results * LIPID PANEL (01/18/2021) CHOLESTEROL 262 TRIGLYCERIDES 1,428 DIRECT LDL 56 us Default History Genericprovider LABORATORY Final Result from Last 3 Months or Most Recently Relevant to [place] [address] [place] [address] Care Teams Cosmetic Consultant Relationship Specialty Start Date End Date Liana Sierra NP [address] [place] [address] PCP - General NURSE PRACTITIONER 11/05/23
--- OUTSIDE RECORDS SUMMARY | 2025-01-19 12:26 | XMS_ITS | Clinical Summary ---
Author Organization [facility] Address [address] [place] [id number] Care Team Providers Care Paper Novelty Maker Name Role Phone Andrei Burger MD Primary Care Provider [phone] Allergies Active Allergy Reactions Criticality Noted Date Comments Codeine Other (See comments) Reaction: coma like state, , Hydrocodone-Acetamin ophen Other (See comments) Low 03/22/2013 Puts patient in a coma like state Medications clobetasoL (TEMOVATE) 0.05 % cream Apply 1 Application topically 2 (two) times a day Active diphenoxylate-atro pine (LOMOTIL) 2.5-0.025 mg per tablet Take 1 tablet by mouth daily as needed for diarrhea 07/05/20 21 Active buPROPion XL (WELLBUTRIN XL) 150 mg 24 hr tablet Take 1 tablet (150 mg total) by mouth daily Active albuterol HFA (PROVENTIL HFA,VENTOLIN HFA,PROAIR HFA) 90 mcg/actuation inhaler Inhale 2 puffs every 4 (four) hours as needed for wheezing Active pregabalin (LYRICA) 100 mg capsule Take 1 capsule (100 mg total) by mouth 2 (two) times a day Active benazepriL (LOTENSIN) 10 mg tablet Take 1 tablet (10 mg total) by mouth daily Active budesonide-formote roL (SYMBICORT) 160-4.5 mcg/actuation inhaler Inhale 1 puff 2 (two) times a day Rinse mouth with water after use. Do not swallow. Active sertraline (ZOLOFT) 100 mg tablet Take 1 tablet (100 mg total) by mouth daily Active aspirin 81 mg chewable tablet Take 1 tablet (81 mg total) by mouth daily 30 tablet 11 02/14/20 Active Additional Information Patient not taking.Reported on 03/25/2023 dicyclomine (BENTYL) 20 mg tablet Take 1 tablet (20 mg total) by mouth 4 (four) times a day before meals and nightly slowly decrease frequency of this medication as your abdominal issues resolve 120 tablet 02/14/20 Active Additional Information Patient not taking.Reported on 03/25/2023 simvastatin (ZOCOR) 20 mg tablet Take 1 tablet (20 mg total) by mouth nightly 30 tablet 02/14/20 Active ondansetron ODT (ZOFRAN-ODT) 4 mg disintegrating tabletIndications: Nausea and Vomiting Take 1 tablet (4 mg total) by mouth every 6 (six) hours as needed for nausea or vomiting 20 tablet 02/14/20 Active Additional Information Patient not taking.Reported on 09/22/2024 metoclopramide (REGLAN) 10 mg tablet Take 1 tablet (10 mg total) by mouth 3 (three) times a day before meals slowly decrease frequency of this medication as your abdominal issues resolve 90 tablet 02/14/20 Active cholecalciferol, vitamin D3, (CHOLECALCIFEROL, VIT D3,,BULK, MISC) Take 1 tablet by mouth daily Active insulin glargine 100 unit/mL (3 mL) pen for injection Inject 40 Units under the skin 2 (two) times a day 15 mL 2 03/20/20 Active insulin lispro (HumaLOG, ADMELOG) 100 unit/mL pen for injection Inject 1-4 Units under the skin 3 (three) times a day with meals (1 unit for every 50 mg/dL blood glucose greater than 150 mg/dL up to max 4 units) Refer to After Visit Summary for Sliding Scale Insulin Instructions. 15 mL 2 03/20/20 Active insulin lispro (HumaLOG, ADMELOG) 100 unit/mL pen for injection Inject 12 Units under the skin 3 (three) times a day with meals 15 mL 2 03/20/20 Active Accu-Chek Norma Plus test strp strip USE TO TEST BLOOD SUGAR FOUR TIMES DAILY 02/18/20 Active dexAMETHasone (DECADRON) 1 mg tablet take 1 mg at 11pm and go to the lab the next morning at 8am to have your blood drawn. 1 tablet 05/19/20 23 Active atorvastatin (LIPITOR) 80 mg tablet Take 1 tablet (80 mg total) by mouth daily 10/29/19 24 Active budesonide-glycopy r-formoterol (Breztri Aerosphere) 160-9-4.8 mcg/actuation inhaler Inhale 2 puffs 2 (two) times a day 12/17/19 24 Active dexAMETHasone (DECADRON) 1 mg tablet take 1 mg at 11pm and go to the lab the next morning at 8am to have your blood drawn. 1 tablet 07/05/20 24 Active Mounjaro 7.5 mg/0.5 mL pen injector Inject 7.5 mg under the skin once a week 06/14/20 24 Active Active Problems Problem Noted Date Diagnosed Date Type 2 diabetes mellitus, wi th long-term current use of insulin 05/19/2023 COPD (chronic obstructive pulmonary disease) 08/2023 Pituitary adenoma 03/25/2023 Enteritis 02/12/2023 Poor venous access 02/12/2023 Malignant hypertension 05/03/2015 Overview (12/12/2016): Malignant HTN with heart disease, w/o CHF, w/o chronic kidney disease Obstructive sleep apnea syndrome 03/07/2015 Overview (12/12/2016): [place] (obstructive sleep apnea) History of stroke 03/07/2015 Overview (12/12/2016): H/O: CVA (cerebrovascular accident) Class 2 severe obesity with serious comorbidity and body mass index (BMI) of 37.0 to 37.9 in adult 03/07/2015 Overview (12/12/2016): Morbid obesity Right ventricular diastolic dysfunction 03/07/20 15 Overview (12/12/2016): Right ventricular diastolic dysfunction Hypertensive heart disease without congestive he art failure 03/07/2015 Overview (12/12/2016): Hypertensive heart disease without CHF Resolved Problems Problem Noted Date Diagnosed Date Resolved Date Abdominal pain 02/12/2023 05/19/2023 Seizure 01/03/2010 05/19/2023 Immunizations Immunization Administration Dates Next Due Tdap 09/08/2021 Surgical History Surgery Date Site/Laterality Comments UVULOPALATOPHARYNGOPLASTY CHOLECYSTECTOMY RENAL CYST EXCISION HYSTERECTOMY W/ BILATERAL SALPINGOOPHORECTOMY SECTION TRANSURETHRAL RESECTION OF BLADDER TUMOR Medical History Medical History Date Comments Hx Other Medical 2009 NONEPILEPTIC SP ELLS; Comments: ELU 03/09/2015 - Stroke (HCC) Sleep apnea Hypertension Depression COPD (chronic obstructive pu lmonary disease) (HCC) Seizure (HCC) 01/03/2010 Fatty liver Neuropathy Colitis Family History Medical History Relation Name Comments Cardiomyopathy Brother 4 Cardiomyopath y; Coronary artery disease Brother 4 Anai nary artery disease; Other Brother 4 Alive and well; Heart attack Father 2 Myocardial infa rction; Cause of : Myocardial infarction Heart attack Mother 2 Myocardial infa rction; Cause of : Myocardial infarction Relation Name Status Comments Brother 1 (Age 12) Brother 2 Alive Brother 3 Alive Brother 4 Father 1 (Age 63) Father 2 Mother 1 (Age 62) Mother 2 Social History Tobacco Use Types Packs/Day Years Used Date Smoking Tobacco: Former Cigarettes Passive Smoke Exposure: Never Smokeless Tobacco: Never Tobacco Cessation:Counseling Given: Not Answered Alcohol Use Standard Drinks/Week Comments No 0 (1 standard drink = 0.6 oz pur e alcohol) Social Connection and Isolat ion Panel [NHANES] Answer Date Recorded In a typical week, how many times do you talk on the phone with family, friends, or neighbors? More than three times a week 03/17/2023 How often do you get togethe r with friends or relatives? More than three times a week 03/17/2023 How often do you attend chur ch or nondenominational services? 1 to 4 times per year 03/17/2023 Do you belong to any clubs o r organizations such as mormonism groups, unions, fraternal or athletic groups, or school groups? No 03/17/2023 How often do you attend meet ings of the clubs or organizations you belong to? Never 03/17/2023 Are you , , di vorced, , never , or living with a partner? 03/17/2023 AUDIT-C Answer Date Recorded Q1: How often do you have a drink containing alcohol? Never 05/19/2023 Q2: How many drinks containi ng alcohol do you have on a typical day when you are drinking? Patient does not drink 3 Q3: How often do you have si x or more drinks on one occasion? Never 05/19/2023 Overall Financial Resource Strain (CARDIA) Answe r Date Recorded How hard is it for you to pa y for the very basics like food, housing, medical care, and heating? Not hard at all 03/17/2023 Hunger Vital Sign Answer Date Recorded Within the past 12 months, y ou worried that your food would run out before you got the money to buy more. Never true 02/13/20 23 Within the past 12 months, t he food you bought just didn't last and you didn't have money to get more. Never true 02/12/2023 PRAPARE - Transportation Answer Date Re corded In the past 12 months, has l ack of transportation kept you from medical appointments or from getting medications? No 03/07 In the past 12 months, has l ack of transportation kept you from meetings, work, or from getting things needed for daily living? No 03/17/2023 Housing Stability Vital Sign Answer Bruce e Recorded In the last 12 months, was t here a time when you were not able to pay the mortgage or rent on time? No 02/12/2023 Number of Places Lived in the Last Year Not on f ile 02/12/2023 In the last 12 months, was t here a time when you did not have a steady place to sleep or slept in a jail (including now)? No 02/12/2023 Personal Safety Answer Date Recorded Have you ever been in or are you currently in a harmful physical or emotional relationship or is someone making you feel afraid or unsafe? Denies 02/03/2024 Comments No Sex and Gender Information Value Date Recorded Sex Assigned at Not on file Legal Sex Female 9:15 PM INSPECTOR GLASS OR MIRROR Gender Identity Not on file Sexual Orientation Not on file Obstetrics History Last Filed Vital Signs Vital Sign Reading Time Taken Comments Blood Pressure 140/92 09/22/2024 9:48 AM INSPECTOR GLASS OR MIRROR Pulse 92 09/22/2024 9:48 AM INSPECTOR GLASS OR MIRROR Temperature 36.9 C (98.5 F) 02/03/2024 1:23 PM CDT Respiratory Rate 18 07/05/2024 2:46 PM CDT Oxygen Saturation 96% 07/05/2024 2:46 PM CDT Inhaled Oxygen Concentration - - Weight 108.9 kg (240 lb) 09/22/2024 9:48 AM INSPECTOR GLASS OR MIRROR Height 170.2 cm (5' 7 ) 09/22/2024 9:48 AM INSPECTOR GLASS OR MIRROR Body Mass Index 37.59 09/22/2024 9:48 AM INSPECTOR GLASS OR MIRROR Plan of Treatment Health Maintenance Due Date Last Done Comments Albumin Creatinine Ratio, Urine 1958 Breast Cancer Screening-Mammogram 1958 Colon Cancer Screening-Colonoscopy 1958 Depression Screening 1958 Hepatitis C Screening 1958 Osteoporosis Screening-Bone Density Scan 1958 Dilated Eye Exam 1958 Foot Exam 1958 Hepatitis B Screening 1976 Pneumococcal vaccine 65+ (1 of 2 - PCV) 1977 Zoster Vaccine (1 of 2) 2008 Lipid Panel 01/18/2022 01/18/2021 Well Visit 65+ 2023 Hemoglobin A1C 09/17/2023 03/17/2023, 02/12/2023 Fall Risk Assessment 03/20/2024 03/20/2023 Covid-19 Vaccine (3 - 2023-2 5 season) 2024 04/04/2021, 03/07/2021 eGFR 02/02/2025 02/03/2024, 03/07, 03/19/2023, Additional history exists Influenza Vaccine (Season Ended) 2025 DTaP/Tdap/Td Vaccine (2 - Td or Tdap) 09/08/2031 09/08/2021 Procedures Procedure Name Priority Date/Time Associated Diagnosis Comments EGFR STAT 02/03/2024 2:10 PM CDT HEMOGLOBIN A1C Routine 03/17/2023 4:19 AM CDT from Last 3 Months or Most Recently Relevant to Health Maintenance Results * eGFR (02/03/2024 2:10 PM CDT) eGFR >90 >=60 mL/min/1. 73 m2 Comment: Interpretive Data Reference Interval Normal >/= 90 mL/min/1.73m2 Mildly decreased* 60 - 89 mL/min/1.73m2 Mildly to moderately decreased 45 - 59 mL/min/1.73m2 Moderately to severely decreased 30 - 44 mL/min/1.73m2 Severely decreased 15 - 29 mL/min/1.73m2 Kidney Failure < 15 mL/min/1.73m2 *Relative to young adult level Estimated glomerular filtration rate is determined by the 2020 CKD-EPI equation recommended by the National Kidney Foundation (A Unifying Approach to GFR Estimation: Recommendations of the NKF-ASK Task Force on Reassessing the Inclusion of Race in Diagnosing Kidney Disease, JASN 2020). The CKD-EPI equation should not be used for patients with unstable renal function and has not been validated in children and those over 70. Current interpretive data was last reviewed 2021. Blood 02/03/2024 2:10 PM CDT 02/03/2024 2:18 PM CDT us Real Sofia MD LAB BLOOD ORDERABLES F inal Result [facility] [address] Department [place] [address] * (ABNORMAL) Hemoglobin A1c (03/17/2023 4:19 AM CDT) Hgb A1C 9.4(H) 4.0 - 5.6 % [facility] Estimated Average Glucose 223 mg/dL [facility] Comment: The ADA recommends reporting an estimated Average Glucose (eAG) with all Hemoglobin A1c results using the equation derived from a study of 507 normal and diabetic adults. Minority populations were underrepresented and children were not included. (Diabetes Care 31:3261-5838, 2008). The eAG is not equivalent to a fasting glucose. Blood 03/17/2023 4:19 AM CDT 03/17/2023 4:19 AM CDT Narrative [facility] - 03/17/2023 4:58 AM CDT Indication for repeat testing:->Health monitoring Rogelio Lares MD LAB BLOOD ORDERABLES Final R esult [facility] [address] [place] Department [place] [address] from Last 3 Months or Most Recently Relevant to Health Maintenance Insurance [employer] MEDICARE ADVANTAGE [employer] [place] [address] [facility] MEDICARE ADVANTAGE Advance Directives For more information, please contact: [phone] Documents on File Type Date Recorded Patient Lead Programmer Analyst Expl anation ADVANCE DIRECTIVE 03/23/2023 7:23 PM POWER OF TRANSPLANT NURSE-MEDICAL * Full Code (Latest Code Status on File) Date Activated Date Inactivated Comments 03/16/2023 10:56 AM 03/20/2023 5:33 PM * Full Code Date Activated Date Inactivated Comments 02/12/2023 3:13 AM 02/13/2023 9:30 PM Care Teams Paper Novelty Maker Relationship Specialty Start Date End Date Andrei Burger MD PCP - General 03/15/15
--- OUTSIDE RECORDS SUMMARY | 2025-01-19 12:26 | XMS_ITS | Encounter Summary ---
Author Organization [facility] Address [facility] [place] [address] Care Team Providers Care Educational Psychology Professor Name Role Phone Liana Sierra SUPERVISOR ROAD ADMINISTRATOR Primary Care Provider [phone] Encounter Details Date Type Department Care Team (Late st Contact Info) Description 12/01/2023 Abstract [facility], [address] [address] Frances Hendrix MA Social History Tobacco Use Types Packs/Day Years Used Date Smoking Tobacco: Never Assessed Comments Unknown Sex and Gender Information Value Date Recorded Sex Assigned at Not on file Legal Sex Female 7:06 PM CDT Gender Identity Not on file Sexual Orientation Not on file documented as of this encounter Plan of Treatment Not on file documented as of this encounter Procedures Procedure Name Priority Date/Time Associated Diagnosis Comments COMPREHENSIVE METABOLIC PANEL Routine 01/18/2021 LIPID PANEL Routine 01/18/2021 THYROID STIM HORMONE TSH Routine 01/18/2021 documented in this encounter Results * (ABNORMAL) COMPREHENSIVE METABOLIC PANEL (01/18/2021) SODIUM S/P/B 135 GLUCOSE 336 mg/dL AST 36 BUN 12 CREATININE S/P/B 0.40(A) 0.5 - 1.0 CALCIUM S/P/B 9.2 POTASSIUM S/P/B 4.3 CHLORIDE S/P/B 102 ALT 51 GFR ESTIMATE >60 us Default History Genericprovider LABORATORY Final Result * LIPID PANEL (01/18/2021) CHOLESTEROL 262 TRIGLYCERIDES 1,428 DIRECT LDL 56 us Default History Genericprovider LABORATORY Final Result * THYROID STIM HORMONE, TSH (01/18/2021) TSH 3.020 us Default History Genericprovider LABORATORY Final Result documented in this encounter Visit Diagnoses Not on filedocumented in this encounter Care Teams Educational Psychology Professor Relationship Specialty Start Date End Date Liana Sierra NP [address] [place] [address] PCP - General NURSE PRACTITIONER 11/05/23 documented as of this encounter
--- OUTSIDE RECORDS SUMMARY | 2025-01-19 12:26 | XMS_ITS | Referral Summary ---
Author Organization [facility] Address [address] [place] [id number] Care Team Providers Care Education Program Manager Name Role Phone Andrei Burger MD Primary Care Provider [phone] Allergies Active Allergy Reactions Criticality Noted Date [...] Immunization Administration Dates Next Due Tdap 09/08/2021 Social History Tobacco Use Types Packs/Day Years [...] 03/17/2023 How often do you attend chur or mandaen services? 1 to 4 times per year 03/17/2023 Do you belong to any clubs o r organizations such as congregational groups, unions, fraternal or athletic groups, or [...] you are drinking? Patient does not drink Q3: How often do you have si [...] place to sleep or slept in a longterm (including now)? No 02/12/2023 Personal Safety Answer Date Recorded Have you ever been in or are you currently in a harmful physical or emotional relationship or is someone making you feel afraid or unsafe? Denies 02/03/2024 Comments No Sex and Gender Information Value Date Recorded Sex Assigned at Not on file Legal Sex Female 9:15 PM ILLUSIONIST Gender Identity Not on file Sexual Orientation Not on file Last Filed Vital Signs Vital Sign Reading Time Taken Comments Blood Pressure 140/92 09/22/2024 9:48 AM ILLUSIONIST Pulse 92 09/22/2024 9:48 AM ILLUSIONIST Temperature 36.9 C (98.5 F) 02/03/2024 1:23 PM CDT Respiratory Rate 18 07/05/2024 2:46 PM CDT Oxygen Saturation 96% 07/05/2024 2:46 PM CDT Inhaled Oxygen Concentration - - Weight 108.9 kg (240 lb) 09/22/2024 9:48 AM ILLUSIONIST Height 170.2 cm (5' 7 ) 09/22/2024 9:48 AM ILLUSIONIST Body Mass Index 37.59 09/22/2024 9:48 AM ILLUSIONIST Plan of Treatment Not on file Procedures Procedure Name Priority Date/Time Associated Diagnosis [...] MD LAB BLOOD ORDERABLES F inal Result [facility] [address] Department of Laboratories [place], [place] [id number] * (ABNORMAL) Hemoglobin A1c (03/17/2023 4:19 AM CDT) Hgb A1C 9.4(H) 4.0 - 5.6 % [facility] Estimated Average Glucose 223 mg/dL [facility] Comment: The ADA recommends reporting an estimated Average Glucose (eAG) with all Hemoglobin A1c results using the equation derived from a study of 507 normal and diabetic adults. Minority populations were underrepresented and children were not included. (Diabetes Care 31:9922-4156, 2008). The eAG is not equivalent to a fasting glucose. Blood 03/17/2023 4:19 AM CDT 03/17/2023 4:19 AM CDT Narrative [facility] - 03/17/2023 4:58 AM CDT Indication for repeat testing:->Health monitoring us Rogelio Lares MD LAB BLOOD ORDERABLES Final R esult [facility] [address] Department [place] [address] from Last 3 Months or Most Recently Relevant to Health Maintenance Insurance [facility] MEDICARE ADVANTAGE Member Subscriber Plan / Payer ( fective 2022-Present) Name:Larisa Mason Relation to Subscriber:Self Name:Larisa Mason Payer ID:[id number] (NAIC) Type:[facility] MEDICARE Address: [place] [id number] [place] [address] [facility] MEDICARE ADVANTAGE Advance Directives For more information, please contact: [phone] Documents on File Type Date Recorded Patient 4Th Grade Math Teacher Expl anation ADVANCE DIRECTIVE 03/23/2023 7:23 PM POWER OF MAIL DELIVERER-MEDICAL * Full Code (Latest Code Status on File) Date Activated Date Inactivated Comments 03/16/2023 10:56 AM 03/20/2023 5:33 PM * Full Code Date Activated Date Inactivated Comments 02/12/2023 3:13 AM 02/13/2023 9:30 PM Care Teams Education Program Manager Relationship Specialty Start Date End Date Andrei Burger MD PCP - General 03/15/15
[2025-01-19 12:36] LABS: Basophils Absolute Auto 0.1 K/mm3 (0.0-0.1); Basophils Percent Auto 0.6 % (0.2-1.2); Eosinophils Absolute Auto 0.6 K/mm3 (0-0.3); Eosinophils Percent Auto 5.1 % (0-4.4); Hematocrit 48.2 % (37.0-47.0); Hemoglobin 15.9 g/dL (12.0-15.0); Immature Granulocyte Absolute 0.06 K/mm3 (0.00-0.031); Immature Granulocyte Percent A 0.5 % (0-0.5); Lymphocytes Absolute Auto 3.41 K/mm3 (0.9-3.2); Lymphocytes Percent Auto 29.8 % (18.3-44.2); Mean Corpuscular Hemoglobin 29.3 pg (26-34); Mean Corpuscular Volume 88.8 fl (80-100); Mean Platelet Volume 12.4 fl (7.4-10.4); Monocytes Absolute Auto 0.8 K/mm3 (0.1-0.6); Neutrophils Absolute Auto 6.5 K/mm3 (1.3-6.7); Platelet Count Result 162 k/mm3 (150-375); Red Blood Count 5.43 M/mm3 (4.2-5.4); White Blood Count 11.5 K/mm3 (4.5-10.0)
[2025-01-19 13:15] LABS: Alanine Aminotransferase 52 U/L (6-35); Albumin Level 4.5 g/dL (3.5-5.1); Alkaline Phosphatase 60 U/L (38-126); Anion Gap 13 mmol/L (4-12); Aspartate Amino Transferase 44 U/L (14-36); Bilirubin,Total 0.9 mg/dL (0.2-1.3); Blood Urea Nitrogen 9 mg/dL (7-17); Calcium 9.2 mg/dL (8.4-10.2); Carbon Dioxide 23 mmol/L (22-30); Chloride 102 mmol/L (98-107); Estimated Glomerular Filt Rate > 60; Glucose 208 mg/dL (65-110); Potassium 4.3 mmol/L (3.4-5.0); Sodium 138 mmol/L (137-145)
[2025-01-19 14:10] LABS: Vitamin D 25 Hydroxy 27.1 ng/mL
[2025-01-19 14:21] LABS: Folic Acid 19.8 ng/mL (2.76->20)
[2025-01-24 14:53] LABS: Vitamin B6 7.8 ng/mL (2.1-21.7)
== END 2025-01-19 12:15 | disposition home or self-care (01) ==
LOC: ANHLAB 12:17
PROVIDERS: PCP Family Medicine; Visit Provider Nurse Practitioner Family
DX: R42 Dizziness and giddiness (principal); H69.90 Unspecified Eustachian tube disorder, unspecified ear; E55.9 Vitamin D deficiency, unspecified; K76.0 Fatty (change of) liver, not elsewhere classified; R19.7 Diarrhea, unspecified; R51.9 Headache, unspecified; Z13.29 Encounter for screening for other suspected endocrine disorder; I10 Essential (primary) hypertension
CPT/HCPCS: 36415; 80053; 82306; 82607; 82746; 84207; 84443; 85025